=== PATIENT | female | born 2000 | race Caucasian/White ===

== ENCOUNTER 2021-04-08 14:43 | Inpatient (IN) ==
[2021-04-08 15:03] VITALS: TEMP 98.2
[2021-04-08 15:44] LABS: Hematocrit (blood only) 38.8 % (37-47); Hemoglobin 13.2 g/dL (12.0-16.0); Mean Corpuscular Hemoglobin 31.7 pg (25-34); Mean Platelet Volume 9.3 fL (7.4-10.4); Platelet Count 387 K/uL (130-400); RDW Coefficient of Variation 13.7 % (11.5-14.5); RDW Standard Deviation 46.5 fL (36.4-46.3); Red Blood Count 4.17 M/uL (4.2-5.4)
--- NOTE | 2021-04-08 15:46 | Emergency Department Note ---
Impression & Plan Cavitary pneumonia, Chest pain, Immunocompromised, Acute dyspnea ED Provider Note NAME: MELLY BELTRAN AGE: 20 SEX: F : 2000 ARRIVES VIA: Walk-In INFORMANT: Patient, ED PROVIDER(S): Ned Diaz MD Chief Complaint: Recent mono and pneumonia with right-sided chest pain and shortness of breath HPI: Patient does presents with the above complaints. The patient reportedly had mono approximately 2 weeks ago or so when the patient was recently treated for no pneumonia shortly thereafter. The patient does have a history of some chronic pneumonia is on Enbrel for history of JRA. The patient is not received her injections over the last several weeks as the patient has had a little bit of fever. Patient did have some right midlung pain. The patient had taken oobh-aet-lzfxpyt medications but denies significant improvement in symptoms. The patient has not shortness of breath with ambulation and some pain to the mid lung/chest. The patient denies any lower extremity swelling. The patient denies any recent prolonged car or plane travel. The patient did go back to [place] over the break but not has not traveled recently. Patient is a non- smoker and denies any leg swelling. The patient does use control. Patient has had productive cough but is unsure as to the cause of sputum. Pancho bunch was referred at the behest of her primary care physician. Patient states her sore throat and mono symptoms have improved. Patient denies any nausea vomiting. The patient has had slightly decreased appetite. ROS: See HPI for pertinent positives and negatives. A total of 10 systems were rev iewed and otherwise negative. Past medical history: See below Surgical history: See below Social history: See below Physical Exam: GENERAL: NAD, wearing a mask, non-toxic. EYE EXAM: Normal conjunctiva. PERRL, no anisocoria and EOM's grossly intact w/o pain. NECK: Supple, no nuchal rigidity, no adenopathy, non-tender. No signs of meningismus. FROM of the neck with good chin to chest and neck extension. No stridor. LUNGS: Decreased breath sounds right mid chest normal chest wall mechanics. HEART: Tachycardic and regular, no MRG. ABDOMEN: Abdomen soft, non-tender, normo-active bowel sounds, no masses, no rebound or guarding. BACK: No CVA TTP. SKIN: No rashes and no bruising. UPPER EXTREMITIES: Upper extremities are grossly normal. LOWER EXTREMITIES: Grossly normal, no edema. Negative Homans' sign bilaterally. NEURO EXAM: A&O x3, cranial nerves II-XII grossly intact, normal speech, moves all 4 extremities on command w/o issue. Differential diagnoses: Reactive airway disease, pneumonia, pneumothorax, COPD, CHF, infections, cardiac ischemia, pulmonary embolism, musculoskeletal, ga strointestinal, as well as other pathologies. Course: Patient was seen and evaluated the bedside. Full history physical exam was performed. EKG interpreted by me Sinus tachycardia, rate of 101, normal intervals, right axis deviation, no obvious ST elevations. Imaging Studies: See Below Cardiac monitoring: An order was placed for continuous cardiac monitoring. The monitor shows a rate of 105 with tachycardic and regular rhythm. MDM: Patient seen due to concern for shortness of breath and recent pneumonia with right mid chest/lung pain. Blood work was obtained along with a chest x-ray and CT angiography of the chest. Patient is a white count of 12 with a normal H&H. Platelet count is unremarkable. Kidney function unremarkable, mild hyponatremia. The patient did receive a liter and half of fluids. Chest x-ray initially read as negative but there may be a faint opacity in the right upper lobe. Patient CT angiography does not show any evidence of PE but does show airspace opacities in the right upper and lower lobe which likely represent pneumonia. Right upper lobe may be necrotic with cavitation and may represent pulmonary abscess. Given these findings I did speak with the on-call vice president global digital marketing Dr. Chavez. He recommended that the patient be placed in a negative pressure room and be tested for TB and HIV. He also recommended ID consult. Patient was ordered Zosyn with a pending MRSA swab. COVID test ordered and was negative. Patient was agreeable to HIV testing. The patient is well-appearing at the bedside and does not have an oxygen requirement. I did s peak the on-call hospitalist Dr. Gallo and the patient was admitted to the medicine service. I did speak with the patient's mother Hailey with the patient's permission and explained the plan of care. She is agreeable to this plan of care. Past Med/Surg History Medical History Acute pharyngitis due to infectious mononucleosis 02/2021 Juvenile rheumatoid arthritis Recurrent pneumonia Surgical History H/O wisdom tooth extraction Hx of tonsillectomy S/P foot surgery, right Family History Mother Breast cancer Ulcerative colitis Lupus Social History Smoking Status: Never smoker Hx Alcohol Use: No Hx Substance Use: No marital status: Single Current Living Situation Comment: dormitory at [employer] current occupational status: student current occupation: [employer] student, kinesiology major Feels Safe at Home: Yes Allergies Allergies Allergy/AdvReac Type Severity Reaction Status Date / Time pineapple Allergy Severe THROAT Verified 04/08/21 17:51 SWELLS SHUT Sulfa (Sulfonamide Allergy Intermediate FULL BODY Verified 04/08/21 17:51 Antibiotics) RASH Home Meds Home Medications Medication Instructions Recorded Confirmed etanercept 50 mg/mL (1 mL) 50 mg SUBCUT WK 03/25/21 04/08/21 subcutaneous pen injector (Enbrel SureClick) ethynodiol diacetate-ethinyl 1 tab PO DAILY 03/25/21 04/08/21 estradiol 1 mg-35 mcg tablet (Kelnor) naproxen 500 mg tablet 500 mg PO BID PRN 04/08/21 04/08/21 Results & Data (ED) Vital Signs Vital Signs - 24 hr 04/08/21 14:59 04/08/21 17:26 04/08/21 17:28 Temperature 36.8 C Temperature Source Temporal Artery Scan Pulse Rate 122 H Pulse Rate [Right Finger] 99 H Pulse Rhythm Regular Pulse Strength Normal Respiratory Rate 18 18 Respiratory Effort / Characteristics Non-Labored Spontaneous Non-Labored Spontaneous Respiratory Depth Normal Normal Respiratory Pattern Regular Regular Blood Pressure 143/82 H Blood Pressure [Right Arm] 122/81 Blood Pressure Mean 102 Blood Pressure Mean [Right Arm] 94 Pulse Oximetry 96 98 Oxygen Delivery Method Room Air Room Air Room Air Sepsis Recent Fever Within 48 Hours No Sepsis New/Unexplained Change in Mental Status No Sepsis Action Taken by Nursing No Action Required 04/08/21 19:00 Temperature Temperature Source Pulse Rate Pulse Rate [Right Finger] 87 Pulse Rhythm Pulse Strength Respiratory Rate 18 Respiratory Effort / Characteristics Respiratory Depth Respiratory Pattern Blood Pressure Blood Pressure [Right Arm] 148/75 H Blood Pressure Mean Blood Pressure Mean [Right Arm] 99 Pulse Oximetry 97 Oxygen Delivery Method Sepsis Recent Fever Within 48 Hours Sepsis New/Unexplained Change in Mental Status Sepsis Action Taken by Correction Medications Current Medication List: was personally reviewed by me Laboratory Data Attestation: I reviewed the patient's lab results. Result diagrams: 04/08/21 15:32 04/08/21 15:32 Lab Results 04/08/21 04/08/21 04/08/21 Range/Units 15:32 15:32 15:32 WBC 12.50 H (4.8-10.8) K/uL RBC 4.17 L (4.2-5.4) M/uL Hgb 13.2 (12.0-16.0) g/dL Hct 38.8 (37-47) % MCV 93.0 (80-100) fL MCH 31.7 (25-34) pg MCHC 34.0 (32-36) g/dL RDW Std Deviation 46.5 H (36.4-46.3) fL RDW Coeff of Sol 13.7 (11.5-14.5) % Plt Count 387 (130-400) K/uL MPV 9.3 (7.4-10.4) fL Immature Gran % (Auto) 0.5 % Neut % (Auto) 61.1 % Lymph % (Auto) 28.6 % [place] % (Auto) 9.1 % Eos % (Auto) 0.4 % Baso % (Auto) 0.3 % Neut # (Auto) 7.64 H (1.4-6.5) K/uL Lymph # (Auto) 3.57 H (1.2-3.4) K/uL [place] # (Auto) 1.14 H (0.11-0.59) K/uL Eos # (Auto) 0.05 (0-0.5) K/uL Baso # (Auto) 0.04 (0-0.2) K/uL Immature Gran # (Auto) 0.06 H (0.00-0.02) K/uL PT 10.6 (9.0-12.0) Seconds INR 1.0 (0.9-1.1) APTT 26.8 (21.0-31.0) Seconds PTT Ratio 1.0 Sodium 135 L (136-145) mmol/L Potassium 4.0 (3.5-5.1) mmol/L Chloride 102 (98-107) mmol/L Carbon Dioxide 23 (21-32) mmol/L Anion Gap 10 (3-11) BUN 17 (6-23) mg/dl Creatinine 0.78 (0.6-1.2) mg/dl Est Cr Clr Drug Dosing 121.9 ml/min Est GFR ( Amer) 127.7 ml/min Est GFR (Non-Af Amer) 110.2 ml/min BUN/Creatinine Ratio 21.8 H (10-20) Glucose 98 (70-99(Fasting)) mg/dl Calcium 9.6 (8.5-10.1) mg/dl Magnesium 2.0 (1.7-2.4) mg/dl Total Bilirubin 0.7 (0.2-1.0) mg/dl AST 21 (13-39) U/L ALT 37 (7-52) U/L Alkaline Phosphatase 127 H (34-104) U/L Troponin I < 0.03 (0-0.04) ng/ml Total Protein 8.2 (6.0-8.3) gm/dl Albumin 4.0 (3.4-5.0) gm/dl Globulin 4.2 H (2.5-4.0) gm/dl Albumin/Globulin Ratio 1.0 (0.9-2) SARS-CoV-2, RNA, NAAT (NEGATIVE) 04/08/21 Range/Units 18:10 WBC (4.8-10.8) K/uL RBC (4.2-5.4) M/uL Hgb (12.0-16.0) g/dL Hct (37-47) % MCV (80-100) fL MCH (25-34) pg MCHC (32-36) g/dL RDW Std Deviation (36.4-46.3) fL RDW Coeff of Sol (11.5-14.5) % Plt Count (130-400) K/uL MPV (7.4-10.4) fL Immature Gran % (Auto) % Neut % (Auto) % Lymph % (Auto) % [place] % (Auto) % Eos % (Auto) % Baso % (Auto) % Neut # (Auto) (1.4-6.5) K/uL Lymph # (Auto) (1.2-3.4) K/uL [place] # (Auto) (0.11-0.59) K/uL Eos # (Auto) (0-0.5) K/uL Baso # (Auto) (0-0.2) K/uL Immature Gran # (Auto) (0.00-0.02) K/uL PT (9.0-12.0) Seconds INR (0.9-1.1) APTT (21.0-31.0) Seconds PTT Ratio Sodium (136-145) mmol/L Potassium (3.5-5.1) mmol/L Chloride (98-107) mmol/L Carbon Dioxide (21-32) mmol/L Anion Gap (3-11) BUN (6-23) mg/dl Creatinine (0.6-1.2) mg/dl Est Cr Clr Drug Dosing ml/min Est GFR ( Amer) ml/min Est GFR (Non-Af Amer) ml/min BUN/Creatinine Ratio (10-20) Glucose (70-99(Fasting)) mg/dl Calcium (8.5-10.1) mg/dl Magnesium (1.7-2.4) mg/dl Total Bilirubin (0.2-1.0) mg/dl AST (13-39) U/L ALT (7-52) U/L Alkaline Phosphatase (34-104) U/L Troponin I (0-0.04) ng/ml Total Protein (6.0-8.3) gm/dl Albumin (3.4-5.0) gm/dl Globulin (2.5-4.0) gm/dl Albumin/Globulin Ratio (0.9-2) SARS-CoV-2, RNA, NAAT NEGATIVE (NEGATIVE) Administered Medications Discontinued Medications Sodium Chloride (Nss 1000ml) 1,000 mls @ 999 mls/hr IV .Q1H1M ONE Stop: 04/08/21 17:01 Last Infusion: 04/08/21 19:15 Dose: 0 mls/hr Documented by: [id number] Admin: 04/08/21 17:25 Dose: 999 mls/hr Documented by: [id number] Sodium Chloride (Nss) 500 mls @ 999 mls/hr IV .Q31M ONE Stop: 04/08/21 16:31 Last Infusion: 04/08/21 18:05 Dose: 0 mls/hr Documented by: [id number] Admin: 04/08/21 17:26 Dose: 999 mls/hr Documented by: [id number] Cefepime HCl (Maxipime) 2,000 mg in 20 mls @ 5 mls/min IV NOW STA; Protocol Stop: 04/08/21 17:36 Last Admin: 04/08/21 18:05 Dose: Not Given Documented by: [id number] Vancomycin HCl 2,000 mg/ (Sodium Chloride) 540 mls @ 200 mls/hr IV NOW ONE Stop: 04/08/21 20:14 Last Admin: 04/08/21 18:05 Dose: Not Given Documented by: [id number] Piperacillin Sod/Tazobactam Sod (Zosyn) 4.5 gm in 120 mls @ 240 mls/hr IV NOW ONE Stop: 04/08/21 18:15 Last Infusion: 04/08/21 19:19 Dose: 0 mls/hr Documented by: [id number] Admin: 04/08/21 18:48 Dose: 240 mls/hr Documented by: [id number] Ioversol (Optiray 320 125ml) 120 ml IV ONCE ONE Stop: 04/08/21 16:31 Last Admin: 04/08/21 16:32 Dose: 120 ml Documented by: [id number] Metronidazole (Metronidazole 500 Mg Tab) 500 mg PO NOW STA Stop: 04/08/21 17:34 Last Admin: 04/08/21 18:05 Dose: Not Given Documented by: [id number] Imaging Data Radiologist's Impression: Chest X-Ray 04/08/21 15:03 XR chest 1V portable CLINICAL HISTORY: SOB TECHNIQUE: Single frontal radiograph of the chest was obtained. Comparison: None available at the time of this dictation. FINDINGS: No lines and tubes are seen. The cardiomediastinal silhouette is normal. The lungs are clear. No evidence of pleural effusion or pneumothorax. IMPRESSION: No acute chest disease. ACT 112: Negative or not required by law. Electronically signed by: Antonio Barth M.D. 04/08/2021 4:05 PM Chest CTA 04/08/21 15:47 CT angio chest PE protocol CLINICAL HISTORY: PE TECHNIQUE: Multidetector row helical CT of the chest was performed. Coronal and sagittal reformations were obtained. Coronal and sagittal MIPS were obtained from the axial data set and were submitted for review. Automated dose lowering techniques and/or adjustment according to patient size were utilized for this exam. Comparison: Comparison is made to chest one view 04/08/2021 FINDINGS: Lungs and pleura: Focal opacities are seen in the right upper lobe and right lower lobe. The upper lobe focus contains some cavitation. Heart and pericardium: Heart size is normal. No pericardial effusion. Vessels: No evidence of pulmonary embolism. Mediastinum and jia: Unremarkable. Chest wall and lower neck: Unremarkable. Abdomen: Unremarkable. Bones: Unremarkable. IMPRESSION: 1. No evidence of pulmonary embolism. 2. Airspace opacities in the right upper lobe and right lower lobe favored to represent pneumonia. The right upper lobe contains necrosis and cavitation and may represent pulmonary abscess. ACT 112: Negative or not required by law. Electronically signed by: Antonio Barth M.D. 04/08/2021 4:49 PM Discharge Plan Visit Data Chief Complaint: Shortness of Breath/Dyspnea Stated Complaint: MONO,PNEUMONIA,SENT FOR CT BY PCP ED Provider: Ned Diaz Discharge Problem: Cavitary pneumonia, Chest pain, Immunocompromised, Acute dyspnea Patient Disposition: Admitted As Inpatient Forms Stand Alone Forms: [employer] Prescriptions Prescriptions: No Action naproxen 500 mg tablet 500 mg PO BID PRN (Reason: Pain) RF: 0 ethynodiol diac-eth estradiol [Robertonor ()] 1-35 mg-mcg tablet 1 tab PO DAILY RF: 0 Enbrel SureClick 50 mg/mL (1 mL) pen injector 50 mg SUBCUT WK RF: 0 Referrals Referrals: [place] [Primary Care Provider] -
[2021-04-08 15:55] LABS: Partial Thromboplastin Time 26.8 Seconds (21.0-31.0); Prothrombin Time 10.6 Seconds (9.0-12.0)
[2021-04-08] MEDS ORDERED: SODIUM CHLORIDE 0.9% 500 ML IV ONE (16:01)
[2021-04-08] MEDS ORDERED: SODIUM CHLORIDE 0.9% 1000ML 1,000 ML IV ONE (16:01)
[2021-04-08 16:04] LABS: Anion Gap 10 (3-11); BUN Creatinine Ratio 21.8 (10-20); Blood Urea Nitrogen 17 mg/dl (6-23); Calcium 9.6 mg/dl (8.5-10.1); Carbon Dioxide 23 mmol/L (21-32); Chloride 102 mmol/L (98-107); Creatinine Clr Calc Pharmacy 121.9 ml/min; Est GFR (African American) 127.7 ml/min; Est GFR (Non-African American) 110.2 ml/min; Glucose 98 mg/dl (70-99(Fasting)); Sodium 135 mmol/L (136-145)
[2021-04-08 16:05] LABS: Alanine Aminotransferase 37 U/L (7-52); Alkaline Phosphatase 127 U/L (34-104); Aspartate Aminotransferase 21 U/L (13-39); Bilirubin,Total 0.7 mg/dl (0.2-1.0); Globulin 4.2 gm/dl (2.5-4.0); Total Protein 8.2 gm/dl (6.0-8.3)
--- NOTE | 2021-04-08 16:06 | XRay Report ---
XR chest 1V portable CLINICAL HISTORY: SOB TECHNIQUE: Single frontal radiograph of the chest was obtained. Comparison: None available at the time of this dictation. FINDINGS: No lines and tubes are seen. The cardiomediastinal silhouette is normal. The lungs are clear. No evid ence of pleural effusion or pneumothorax. IMPRESSION: No acute chest disease. ACT 112: Negative or not required by law. Electronically signed by: Antonio Barth M.D. 04/08/2021 4:05 PM
[2021-04-08 16:07] LABS: Troponin I < 0.03 ng/ml (0-0.04)
[2021-04-08 16:12] LABS: Basophils # (auto) 0.04 K/uL (0-0.2); Basophils % (auto) 0.3 %; Eosinophils # (auto) 0.05 K/uL (0-0.5); Eosinophils % (auto) 0.4 %; Immature Granulocytes # (auto) 0.06 K/uL (0.00-0.02); Immature Granulocytes % (auto) 0.5 %; Lymphocytes # (auto) 3.57 K/uL (1.2-3.4); Lymphocytes % (auto) 28.6 %; Monocytes # (auto) 1.14 K/uL (0.11-0.59); Monocytes % (auto) 9.1 %; Neutrophils # (auto) 7.64 K/uL (1.4-6.5); Neutrophils % (auto) 61.1 %
[2021-04-08] MEDS ORDERED: OPTIRAY 320 125ml IV ONE (16:30)
--- NOTE | 2021-04-08 16:51 | CT Scan Report ---
CT angio chest PE protocol CLINICAL HISTORY: PE TECHNIQUE: Multidetector row helical CT of the chest was performed. Coronal and sagittal reformations were obtained. Coronal and sagittal MIPS were obtained from the axial data set and were submitted fo r review. Automated dose lowering techniques and/or adjustment according to patient size were utiliz ed for this exam. Comparison: Comparison is made to chest one view 04/08/2021 FINDINGS: Lungs and pleura: Focal opacities are seen in the right upper lobe and right lower lobe. The upper lo be focus contains some cavitation. Heart and pericardium: Heart size is normal. No pericardial effusion. Vessels: No evidence of pulmonary embolism. Mediastinum and jia: Unremarkable. Chest wall and lower neck: Unremarkable. Abdomen: Unremarkable. Bones: Unremarkable. IMPRESSION: 1. No evidence of pulmonary embolism. 2. Airspace opacities in the right upper lobe and right lower lobe favored to represent pneumonia. T he right upper lobe contains necrosis and cavitation and may represent pulmonary abscess. ACT 112: Negative or not required by law. Electronically signed by: Antonio Barth M.D. 04/08/2021 4:49 PM
[2021-04-08] MEDS ORDERED: CEFEPIME 2,000 MG/20 ML VIAL IV STA (17:33)
[2021-04-08] MEDS ORDERED: VANCOMYCIN CONSULT ACTIVE PRN (17:33)
[2021-04-08] MEDS ORDERED: VANCOMYCIN HCL 2,000 MG in SODIUM CHLORIDE 0.9% 500 ML IV ONE (17:33)
[2021-04-08] MEDS ORDERED: metroNIDAZOLE 500 MG TAB PO STA (17:33)
[2021-04-08] MEDS ORDERED: PIPERACILL/TAZOBAC CONSULT ACTIVE PRN ×2 (17:46→22:27)
--- NOTE | 2021-04-08 18:05 | History & Physical Report ---
Date of Service April 08, 2021 Assessment & Plan (1) Cavitary pneumonia: Plan: RUL pneumonia with mild cavitation. Small amount of RLL pneumonia as well. s/p course of augmentin + zithromax as outpatient recently. Fevers/chills resolved. Labs reassuring at admission today. No hypoxia. ED attending spoke with pulmonary. Plan/recommendations at this time - * zosyn q8h * place in airborne isolation - r/o TB (given the cavitation and risk of such due to Enbrel use for RA) * AFB smear/culture in AM * Quantiferon gold sent * HIV test sent - patient gave verbal consent for such * MRSA PRODUCTION EXPERT swab - if negative, defer on MRSA coverage * blood cultures x 2 sets * formal pulmonary consultation requested (2) Recurrent pneumonia: Plan: Multiple episodes of right-sided pneumonia per the patient over several years. Immune deficiency? Anatomic abnormality of the right lung leading to recurrent pneumonia? Patient reports ?"mild" cystic fibrosis. Will check IgG, IgM, IgA in am. Pulmonary consultation. (3) Mononucleosis: Plan: Diagnosed with such earlier this month. Monospot +. Previously had mono-induced transaminitis - now resolved. Greenlee symptoms resolved including recent pharyngitis. (4) Rheumatoid arthritis: Plan: previously on Humira, then switched to Enbrel 01/2021. no active flare at this time. (5) DVT prophylaxis: Plan: lovenox 40mg daily History of Present Illness Chief Complaint: right upper back pain Primary Care Provider: [facility] 20yo female, [employer] student, with history of juvenile rheumatoid arthritis and recurrent pneumonia, presents with complaints of persistent right upper back pain for several weeks. Pleuritic in nature. In addition to the above, she has had intermittent fevers along with URI symptoms dating back to 2020. Patient states that 03/09 into 03/10 she developed URI symptoms. She was seen by her supervisor heat treating in [place], had negative COVID testing, and was told she had a viral URI. From until New 's she felt unwell with intermittent fevers to 101 degrees, mild cough, appetite loss, and back pain. She felt well enough to return for the spring at [employer] in [place] ~03/24/21. Upon return to [place], however, she developed severe sore throat. She presented to our ER on 03/25/21 and was diagnosed with mono. She was given a dose of steroid for such. AST/ALT were elevated at that time. COVID testing was negative. Her family came back to [place] the following day and brought her back to [place]. Upon return to [place] she visited a local ER there and was diagnosed with right-sided pneumonia. She was placed on a course of augmentin + zithromax. She continued to feel poorly despite the antibiotics with ongoing intermittent fevers and intermittent rigors. Her last episode of rigors was 04/03, and her last documented fever was 04/04. She did finally feel better on a grand scale late this past week and her appetite improved. She has had minimal cough. She has had dyspnea on exertion. Despite feeling better she continued with right upper back pain over the last week. [facility] CTA chest was obtained, and although negative for PE, showed RUL pneumonia with some cavitation, and a small amount of RLL pneumonia. She denies any TB risk factors - does not work in a healthcare or correction setting, no travel, no work or spending time in prisons, etc. No family history of TB. Up until 01/2021 she was on Humira for her RA. She was changed to Enbrel 01/2021 but hasn't been taking it due to her prolonged illness since February. Patient reports having had 4-5 episodes of right-sided pneumonia over the years. Last episode was 3-4 years ago. She has never been hospitalized for pneumonia. She mentions that she was possibly diagnosed with a "mild form of cystic fibrosis" years ago at [facility] in [place] but doesn't follow regularly with a larder cook. Allergies Allergy/AdvReac Type Severity Reaction Status Date / Time pineapple Allergy Severe THROAT Verified 04/08/21 17:51 SWELLS SHUT Sulfa (Sulfonamide Allergy Intermediate FULL BODY Verified 04/08/21 17:51 Antibiotics) RASH Home Medications Medication Instructions Recorded Confirmed Type etanercept 50 mg/mL (1 mL) 50 mg SUBCUT WK 03/25/21 04/08/21 History subcutaneous pen injector (Enbrel Kelyick) ethynodiol diacetate-ethinyl 1 tab PO DAILY 03/25/21 04/08/21 History estradiol 1 mg-35 mcg tablet (Kelnor) naproxen 500 mg tablet 500 mg PO BID PRN 04/08/21 04/08/21 History Past Med/Surg History Medical History (Updated 04/08/21 @ 21:47 by Chester Gallo) Acute pharyngitis due to infectious mononucleosis 02/2021 Juvenile rheumatoid arthritis Recurrent pneumonia Surgical History H/O wisdom tooth extraction Hx of tonsillectomy S/P foot surgery, right Family History Mother Breast cancer Ulcerative colitis Lupus Social History Smoking Status: Never smoker Hx Alcohol Use: No Hx Substance Use: No marital status: Single Current Living Situation Comment: dormitory at [employer] current occupational status: student current occupation: [employer] student, kinesiology major Feels Safe at Home: Yes Review of Systems Review of Systems: gen - fevers, chills, occasional sweats; no weight loss HENT - recent R ear pain - now resolved; recent sore throat - now resolved eyes - no visual change heart - no chest pain; atypical pleuritic pain (right upper back) lungs - cough; no sputum; mild VENTURA last several weeks GI - no nausea, emesis, abd pain or diarrhea - LMP 1 week ago; no dysuria musculo - no joint pain (rheumatoid) skin - rash on arms x 1 week neuro - no headaches, no paresthesias or weakness endo - no diabetes lymph - she has not noted any lymph nodes in the neck, groin, etc. Physical Exam Physical Exam: gen - NAD, nontoxic eyes - PERRL HENT - mild TM retraction b/l; nose clear; throat - tonsils absent, no lesions neck - no JVD, mild cervical lymphadenopathy b/l heart - RRR, s1 s2, no murmur lungs - rales right upper back and right anterior chest; otherwise CTA b/l; no wheeze; no increased work of breathing abd - soft, NT, ND, BS+, spleen tip palpable ext - no edema, pulses 2+ b/l skin - erythematous papules b/l arms, no rash other locations neuro - strength 5/5 x 4 exts; DTRs 2+ b/l psych - a/o x 3 Results & Data Results & Data ([facility]) Vital Signs (Past 12 Hours) Vital Signs Temp Pulse Pulse Resp BP BP Pulse Ox 04/08/21 17:26 99 H 18 122/81 98 04/08/21 14:59 36.8 C 122 H 18 143/82 H 96 Laboratory Results Laboratory Results - last 24 hr 04/08/21 04/08/21 04/08/21 15:32 15:32 15:32 WBC 12.50 H RBC 4.17 L Hgb 13.2 Hct 38.8 MCV 93.0 MCH 31.7 MCHC 34.0 RDW Std Deviation 46.5 H RDW Coeff of Sol 13.7 Plt Count 387 MPV 9.3 Immature Gran % (Auto) 0.5 Neut % (Auto) 61.1 Lymph % (Auto) 28.6 Greenlee % (Auto) 9.1 Eos % (Auto) 0.4 Baso % (Auto) 0.3 Neut # (Auto) 7.64 H Lymph # (Auto) 3.57 H Greenlee # (Auto) 1.14 H Eos # (Auto) 0.05 Baso # (Auto) 0.04 Immature Gran # (Auto) 0.06 H PT 10.6 INR 1.0 APTT 26.8 PTT Ratio 1.0 Sodium 135 L Potassium 4.0 Chloride 102 Carbon Dioxide 23 Anion Gap 10 BUN 17 Creatinine 0.78 Est Cr Clr Drug Dosing 121.9 Est GFR ( Amer) 127.7 Est GFR (Non-Af Amer) 110.2 BUN/Creatinine Ratio 21.8 H Glucose 98 Calcium 9.6 Magnesium 2.0 Total Bilirubin 0.7 AST 21 ALT 37 Alkaline Phosphatase 127 H Troponin I < 0.03 Total Protein 8.2 Albumin 4.0 Globulin 4.2 H Albumin/Globulin Ratio 1.0 Nasal Screen MRSA (PCR) HIV 1&2 Ab/P24 Ag 4thGn SARS-CoV-2, RNA, NAAT TB Test (QFT) Gold Plus TB Test (QFT) Nil TB Test Mitogen - Nil TB Test Ag - Nil 1 TB Test Ag - Nil 2 04/08/21 04/08/21 04/08/21 18:10 18:10 18:33 WBC RBC Hgb Hct MCV MCH MCHC RDW Std Deviation RDW Coeff of Sol Plt Count MPV Immature Gran % (Auto) Neut % (Auto) Lymph % (Auto) Greenlee % (Auto) Eos % (Auto) Baso % (Auto) Neut # (Auto) Lymph # (Auto) Greenlee # (Auto) Eos # (Auto) Baso # (Auto) Immature Gran # (Auto) PT INR APTT PTT Ratio Sodium Potassium Chloride Carbon Dioxide Anion Gap BUN Creatinine Est Cr Clr Drug Dosing Est GFR ( Amer) Est GFR (Non-Af Amer) BUN/Creatinine Ratio Glucose Calcium Magnesium Total Bilirubin AST ALT Alkaline Phosphatase Troponin I Total Protein Albumin Globulin Albumin/Globulin Ratio Nasal Screen MRSA (PCR) Negative HIV 1&2 Ab/P24 Ag 4thGn Pending SARS-CoV-2, RNA, NAAT NEGATIVE TB Test (QFT) Gold Plus TB Test (QFT) Nil TB Test Mitogen - Nil TB Test Ag - Nil 1 TB Test Ag - Nil 2 04/08/21 18:33 WBC RBC Hgb Hct MCV MCH MCHC RDW Std Deviation RDW Coeff of Sol Plt Count MPV Immature Gran % (Auto) Neut % (Auto) Lymph % (Auto) Greenlee % (Auto) Eos % (Auto) Baso % (Auto) Neut # (Auto) Lymph # (Auto) Greenlee # (Auto) Eos # (Auto) Baso # (Auto) Immature Gran # (Auto) PT INR APTT PTT Ratio Sodium Potassium Chloride Carbon Dioxide Anion Gap BUN Creatinine Est Cr Clr Drug Dosing Est GFR ( Amer) Est GFR (Non-Af Amer) BUN/Creatinine Ratio Glucose Calcium Magnesium Total Bilirubin AST ALT Alkaline Phosphatase Troponin I Total Protein Albumin Globulin Albumin/Globulin Ratio Nasal Screen MRSA (PCR) HIV 1&2 Ab/P24 Ag 4thGn SARS-CoV-2, RNA, NAAT TB Test (QFT) Gold Plus Pending TB Test (QFT) Nil Pending TB Test Mitogen - Nil Pending TB Test Ag - Nil 1 Pending TB Test Ag - Nil 2 Pending Diagnostic Findings Chest X-Ray 04/08/21 15:03 XR chest 1V portable CLINICAL HISTORY: SOB TECHNIQUE: Single frontal radiograph of the chest was obtained. Comparison: None available at the time of this dictation. FINDINGS: No lines and tubes are seen. The cardiomediastinal silhouette is normal. The lungs are clear. No evidence of pleural effusion or pneumothorax. IMPRESSION: No acute chest disease. ACT 112: Negative or not required by law. Electronically signed by: Antonio Barth M.D. 04/08/2021 4:05 PM Chest CTA 04/08/21 15:47 CT angio chest PE protocol CLINICAL HISTORY: PE TECHNIQUE: Multidetector row helical CT of the chest was performed. Coronal and sagittal reformations were obtained. Coronal and sagittal MIPS were obtained from the axial data set and were submitted for review. Automated dose lowering techniques and/or adjustment according to patient size were utilized for this exam. Comparison: Comparison is made to chest one view 04/08/2021 FINDINGS: Lungs and pleura: Focal opacities are seen in the right upper lobe and right lower lobe. The upper lobe focus contains some cavitation. Heart and pericardium: Heart size is normal. No pericardial effusion. Vessels: No evidence of pulmonary embolism. Mediastinum and jia: Unremarkable. Chest wall and lower neck: Unremarkable. Abdomen: Unremarkable. Bones: Unremarkable. IMPRESSION: 1. No evidence of pulmonary embolism. 2. Airspace opacities in the right upper lobe and right lower lobe favored to represent pneumonia. The right upper lobe contains necrosis and cavitation and may represent pulmonary abscess. ACT 112: Negative or not required by law. Electronically signed by: Antonio Barth M.D. 04/08/2021 4:49 PM PG Care Time/CCT Total # of Minutes Spent Total Time Spent with Patient: Total time spent is greater than 50% in coordination of care (as documented) at patient's floor/unit and/or counseling patient: Coding Level of Care Code 27261 Initial Inpt Care Lvl 3 Diagnoses Cavitary pneumonia J18.9; J98.4 Recurrent pneumonia J18.9 Mononucleosis B27.90 Rheumatoid arthritis M06.9 DVT prophylaxis Z29.9
[2021-04-08] MEDS: PIPERACILLIN/TAZOBACTAM 4.5 GM/120 ML BAG IV ONE ×2 (18:06→18:48)
--- NOTE | 2021-04-08 20:29 | Electrocardiogram Report ---
Test Reason : Blood Pressure : / mmHG Vent. Rate : 101 BPM Atrial Rate : 101 BPM P-R Int : 130 ms QRS Dur : 092 ms QT Int : 346 ms P-R-T Axes : 043 083 036 degrees QTc Int : 448 ms Sinus tachycardia Otherwise normal ECG No previous ECGs available Confirmed by Eric Yepez ([id number]) on 04/08/2021 8:29:28 PM Referred By: Confirmed By:Lj Yepez
[2021-04-08] MEDS ORDERED: SODIUM CHLORIDE 0.9% 1000ML 1,000 ML IV SCH (22:27)
[2021-04-08] MEDS ORDERED: ACETAMINOPHEN 325 MG TAB PO PRN (22:27)
[2021-04-08] MEDS ORDERED: ONDANSETRON INJ 2 MG/ML 2 ML VIAL IV PRN (22:27)
[2021-04-09] MEDS: PIPERACILLIN/TAZOBACTAM 3.375 GM in DEXTROSE 5% 100 ML IV SCH ×3 (00:24→17:24)
[2021-04-09 01:18] LABS: Pregnancy Test, Urine Negative (Negative)
[2021-04-09 05:55] LABS: BUN Creatinine Ratio 19.5 (10-20); Calcium 8.3 mg/dl (8.5-10.1); Creatinine Clr Calc Pharmacy 125.1 ml/min; Est GFR (African American) 129.7 ml/min; Est GFR (Non-African American) 111.9 ml/min; Immunoglobulin A 319.4 mg/dl (70-400); Immunoglobulin G 1015.6 mg/dl (635-1741); Immunoglobulin M 160.8 mg/dl (45-281); Potassium 4.1 mmol/L (3.5-5.1)
[2021-04-09 06:48] LABS: Hematocrit (blood only) 31.6 % (37-47); Hemoglobin 10.5 g/dL (12.0-16.0); Mean Corpuscular Hemoglobin 31.1 pg (25-34); Mean Corpuscular Hgb Conc 33.2 g/dL (32-36); Mean Corpuscular Volume 93.5 fL (80-100); Mean Platelet Volume 9.4 fL (7.4-10.4); Platelet Count 316 K/uL (130-400); RDW Coefficient of Variation 13.7 % (11.5-14.5); RDW Standard Deviation 46.9 fL (36.4-46.3); Red Blood Count 3.38 M/uL (4.2-5.4); White Blood Count 9.42 K/uL (4.8-10.8)
[2021-04-09 06:49] LABS: Basophils # (auto) 0.03 K/uL (0-0.2); Basophils % (auto) 0.3 %; Eosinophils # (auto) 0.09 K/uL (0-0.5); Immature Granulocytes # (auto) 0.06 K/uL (0.00-0.02); Immature Granulocytes % (auto) 0.6 %; Lymphocytes # (auto) 2.34 K/uL (1.2-3.4); Lymphocytes % (auto) 24.8 %; Monocytes % (auto) 10.6 %; Neutrophils % (auto) 62.7 %; Polychromasia 1+
--- NOTE | 2021-04-09 08:25 | Pulmonary Consultation ---
Date of Consultation April 09, 2021 Assessment & Plan (1) Cavitary pneumonia: (2) Recurrent pneumonia: (3) Mononucleosis: Johanna Frey is a 20-year-old female with past medical history of juvenile rheumatoid arthritis and recent pneumonia diagnosis who is now admitted due to recurrent pneumonia symptoms and findings of cavitary lesion on CT. Cavitary pneumonia - No clear history/risk factors concerning for TB at this time but her immunosuppressive treament for JRA does put her at risk - Recommend continuing Zosyn at this point -- await ID consult for treatment duration/regimen - Recommend follow-up CXR in [address] in 4-6 weeks - Follow sputum/AFB cultures, Quantiferon Gold, HIV testing - Continue airborne isolation until TB ruled out Thank you for allowing us to participate in this patient's care. Please refer to Dr. Chavez's attestation for further information. Supervising Physician Co-Signing Physician Notes Patient seen and examined resident physician. Agree with assessment and plan aside for any additions/exceptions noted: She has a notable history for being on Enbrel and Humira. She notes that she gets yearly TB testing and has been negative. She denies any obvious risk factors. ID consult is pending. Immunoglobulins were unremarkable. QuantiFERON gold testing pending. HIV screen was negative. Sputum Gram stain was unremarkable. Sputum AFB pending. Patient does not appear toxic or septic at this time. She likely has a bacterial pneumonia which has become a necrosing/cavitating process. Recommend antibiotics for 4-6 weeks and repeat i maging such as a chest x-ray in 2 weeks and then a follow-up CT chest in 4 to 6 weeks. If no improvement in 2 weeks, can perform bronchoscopy to obtain cultures and tissue samples. Would probably hold Enbrel during this period of time, but will defer to infectious disease in terms of guidance. Can consider autoimmune serological testing including ANCA and CINTHIA screens if no improvement in the future. Other possibilities include congenital pulmonary airway malformation or congenital pulmonary atresia. This does not appear to be pulmonary sequestration as there is no clear blood vessel from the systemic circulation Constitutional: Patient appears to be of their stated age. Patient is in no apparent distress. Patient is well-developed. Eyes: Pupils are equal round and reactive to light. Conjunctivae are normal. Anicteric sclera. Ears nose, mouth and throat: No obvious deformities. Neck: Trachea is midline. Visual inspection is normal. Respiratory: Clear to auscultation bilaterally. No use of accessory muscles. No significant clubbing noted. Cardiovascular: Regular rate and rhythm. No murmurs. No edema. Gastrointestinal: Normal bowel sounds, soft, nontender and nondistended. No hepatosplenomegaly noted. Musculoskeletal: No cyanosis. Patient is able to move all extremities. Skin: No rashes, warm dry and intact. Neurologic: No obvious focal neurological deficits seen. Psychiatric: Alert and oriented x3 with a euthymic affect. Thank you for the consult. We will continue to follow with you. History of Present Illness Attending Physician: Chester Gallo History of Present Illness Johanna Frey is a 20-year-old female with past medical history of juvenile rheumatoid arthritis on Enbrel and recent pneumonia diagnosis who presented due to upper back pain in the setting of recurrent upper respiratory symptoms. She first began with symptoms on March 09 and at that point was tested for Covid, which was negative. She eventually went home for the holidays and felt well enough to return to [facility] for spring on 03/24. However, at this time she developed a sore throat and presented to the [facility] emergency department. She was diagnosed with mononucleosis and received a one-time dose of IV dexamethasone prior to discharge home. Shortly thereafter she returned home to [place] with family and eventually visited in ER there and was diagnosed with right-sided pneumonia. She was started on a course of Augmentin and Zithromax. Despite this, she continued to feel poorly and had intermittent fevers as well as continued dyspnea on exertion. She has had very minimal coughing and minimal sputum production. Upon admission to our hospital, CTA chest was obtained, which was negative for PE but did show right upper lobe pneumonia with mild cavitation and right lower lobe pneumonia as well. She does not have a known family history of TB infection, does not work in healthcare skilled nursing setting, Has not traveled to any area with high rates of tuberculosis, does not work/volunteer/spend time in prisons. Allergies Allergy/AdvReac Type Severity Reaction Status Date / Time pineapple Allergy Severe THROAT Verified 04/08/21 17:51 SWELLS SHUT Sulfa (Sulfonamide Allergy Intermediate FULL BODY Verified 04/08/21 17:51 Antibiotics) RASH Home Medications Medication Instructions Recorded Confirmed Type etanercept 50 mg/mL (1 mL) 50 mg SUBCUT WK 03/25/21 04/08/21 History subcutaneous pen injector (Enbrel Kelyick) ethynodiol diacetate-ethinyl 1 tab PO DAILY 03/25/21 04/08/21 History estradiol 1 mg-35 mcg tablet (Kelnor) naproxen 500 mg tablet 500 mg PO BID PRN 04/08/21 04/08/21 History Patient History Medical History (Updated 04/09/21 @ 00:06 by Karla Bernardo) Acute pharyngitis due to infectious mononucleosis 02/2021 Juvenile rheumatoid arthritis Recurrent pneumonia Surgical History H/O wisdom tooth extraction Hx of tonsillectomy S/P foot surgery, right Family History Mother Breast cancer Ulcerative colitis Lupus Social History Smoking Status: Never smoker Hx Alcohol Use: No Hx Substance Use: No Communication Ability: Effective Beliefs That Will Affect Care: None marital status: Single Current Living Situation: Other Current Living Situation Comment: roomate at college dorm current occupational status: student current occupation: [employer] student, kinesiology major Feels Safe at Home: Yes Assistive Devices: None Review of Systems Review of Systems: Reports back pain and mild SOB on exertion. Denies f/c, n/v, cough, CP, palp, abd pain, diarrhea, constipation, urinary symptoms, MÉNDEZ, dizziness, unexplained weight loss, weakness, fatigue. Physical Exam Physical Exam: GENERAL: A&Ox3. NAD. HEENT: PERRL, EOMI. Moist mucous membranes. NECK: No lymphadenopathy. CHEST/LUNGS: CTAB A/P. No crackles, wheezes, rales, rhonchi. HEART: RRR. No m/g/r. ABDOMEN: NT/ND, soft. BS+ x4 EXTREMITIES: No cyanosis, no clubbing, no edema SKIN: Warm and dry. No rashes or lesions. PSYCHIATRIC: Euthymic affect, no SI, no pressured speech, no hallucinations. NEUROLOGIC: No FND. CN II-XII grossly intact. Results & Data Results & Data ([facility]) Vital Signs (Past 12 Hours) Vital Signs Pulse Resp BP Pulse Ox 04/09/21 07:00 83 23 96 04/09/21 00:54 16 04/08/21 22:27 84 16 121/63 98 Resident Activity Tracking Resident Involvement: Resident Care Provided Care Provided: Adult Hospital Medicine
[2021-04-09] MEDS: ENOXAPARIN INJ 40 MG/0.4 ML SYR SQ SCH (09:17)
[2021-04-09] MEDS: ADVANCED PROBIOTIC 1250 MG CAPSULE PO SCH (09:17)
[2021-04-09] MEDS ORDERED: KELNOR PO SCH ×2 (12:00→22:00)
--- NOTE | 2021-04-09 14:00 | Hospitalist Progress Note ---
Date of Service April 09, 2021 Assessment & Plan (1) Cavitary pneumonia: Plan: RUL pneumonia with mild cavitation. Likely bacterial. Small risk that it is TB. Small amount of RLL pneumonia as well. s/p course of augmentin + zithromax as outpatient recently. Fevers/chills resolved. Labs reassuring at admission. No hypoxia. Remains very stable. Blood cx's and sputum cx neg. Cont the following - * zosyn q8h; await ID consult & recs * cont airborne isolation - r/o TB (given the cavitation and risk of such due to Enbrel use for RA) * AFB smear/culture sent but pending * Quantiferon gold sent but pending * HIV test neg - patient made aware * MRSA PLANNER SCHEDULER swab negative * IgG, IgM, IgA all negative * appreciate pulmonary recs - likely to need 4-6 weeks of abx, repeat cxr, f/u Chest CT, and close pulm f/u (2) Recurrent pneumonia: Plan: Multiple episodes of right-sided pneumonia per the patient over several years. I confirmed with her rfid analyst in [place] that she had cxr-confirmed pneu monia of the RUL in 2018. Immune globulins normal. Anatomic abnormality of the right lung leading to recurrent pneumonia? Patient does NOT have cystic fibrosis and did not have sweat test several years ago - peds pulmonary deferred on such. Pulmonary consultation appreciated. repeat chest CT in 6 weeks. If she fails to improve may need outpatient bronch. (3) Mononucleosis: Plan: Diagnosed with such earlier this month. Monospot +. Previously had mono-induced transaminitis - now resolved. [place] symptoms resolved including recent pharyngitis. (4) Rheumatoid arthritis: Plan: previously on Humira, then switched to Enbrel 01/2021. no active flare at this time. Enbrel on hold due to #1 above. (5) DVT prophylaxis: Plan: lovenox 40mg daily - encouraged patient to use while here given her pneumonia, OCP use, recent travels back/forth to [place], etc. Plan: urine HCG neg diet - regular total time today 90 minutes including call to pt's PCP in [place], call to pt's mother, conversation with pulmonary here, review of records, and bedside care Admission and Anticipated Discharge Date Admission Date: April 08, 2021 Subjective patient had uneventful night feels well mild right upper back pain only with taking breaths was doing homework when I came to see her scant cough no dyspnea at rest mild dyspnea with walking to bathroom only no fevers good appetite I spoke with Dr Nakul Spencer's rfid analyst since she was a toddler - and we reviewed her medical history going back about 10 years last documented pneumonia via cxr was 03/2017 - pneumonia was indeed in the RUL he could not find other cxr's to support other cases of pneumonia seen by pulmonary at [facility] in 2019 -- CF testing deferred given good growth, no chronic respiratory symptoms on consistent basis, no steatthorhea, etc PFTs were normal - no obstruction the pulmonary documentation states that she may have had 1-2 documented episodes of pneumonia over her childhood spoke with pt's mother by phone - near 30-minute conversation - extensive update given, questions answered Johanna's assistant manager of operations in [place] is Dr Brown, [facility] she has been seeing this physician since the age of 8 for the JRA Review of Systems Review of Systems: gen - no fevers/chills/sweats/weight loss; good appetite HENT - no URI symptoms cv - no orthopnea or central anterior chest pain pulm - no hemoptysis GI - no pain/N/V Physical Exam Physical Exam: gen - looks well, nontoxic, nad, no resp distress; no cough over my entire 15 min bedside visit mouth - MMM neck - no JVD heart - RRR, s1 s2, no murmur lungs - mild rales RUL, otherwise CTA b/l abd - soft NT ND BS+; spleen tip palpable ext - no edema, pulses 2+ b/l skin -rash on arms mildly improved Results & Data Results & Data ([facility]) Vital Signs (Past 12 Hours) Vital Signs Pulse Resp BP Pulse Ox Pulse Ox 04/09/21 12:00 92 H 20 121/79 04/09/21 10:00 83 24 119/73 04/09/21 09:18 94 H 22 123/80 96 04/09/21 09:14 98 04/09/21 07:00 83 23 96 Laboratory Results Laboratory Results - last 24 hr 04/08/21 18:33 HIV 1&2 Ab/P24 Ag 4thGn Neg cbc, bmp wnl IgG,IgM,IgA wnl sputum cx neg blood cx's neg PG Care Time/CCT Total # of Minutes Spent Total Time Spent with Patient: Total time spent is greater than 50% in coordination of care (as documented) at patient's floor/unit and/or counseling patient: Prolonged Care Time Prolonged Care Time: Yes 90 Coding Level of Care Code 26779 Subseq Hosp Care Lvl 3 (25 - SIGNIFICANT, SEPARATELY IDENTIFIABLE ) Diagnoses Cavitary pneumonia J18.9; J98.4 Recurrent pneumonia J18.9 Mononucleosis B27.90 Rheumatoid arthritis M06.9 DVT prophylaxis Z29.9 Additional Codes Prolonged Care Time - Prolonged Care Time: Yes ([id number]) Time Spent (min) 90
[2021-04-09] MEDS: TRIAMCINOLONE ACET 0.1% CR 80 GM TUBE EXT SCH ×2 (15:55→21:37)
--- NOTE | 2021-04-09 17:08 | Billing Data ---
Date of Service April 09, 2021 Coding Level of Care Code 83363 Initial Inpt Care Lvl 3
[2021-04-10] MEDS: PIPERACILLIN/TAZOBACTAM 3.375 GM in DEXTROSE 5% 100 ML IV SCH ×2 (01:52→10:07)
--- NOTE | 2021-04-10 07:47 | Pulmonology Progress Note ---
Date of Service April 10, 2021 Assessment & Plan (1) Cavitary pneumonia: (2) Recurrent pneumonia: (3) Mononucleosis: Plan: Johanna Frey is a 20-year-old female with past medical history of juvenile rheumatoid arthritis and recent pneumonia diagnosis who is now admitted due to recurrent pneumonia symptoms and findings of cavitary lesion on CT. Cavitary pneumonia - No clear history/risk factors concerning for TB at this time but her immunosuppressive treament for JRA does put her at risk but gets tested yearly and has always been negative - Likely has a bacterial pneumonia which has become a necrosing/cavitating process - Recommend continuing Zosyn at this point, total antibiotics likely 4-6 weeks -- await ID consult for further insight - Recommend follow-up CXR in [address] in 4-6 weeks - If no improvement in 2 weeks, can perform bronchoscopy to obtain cultures and tissue samples - Can consider autoimmune serological testing including ANCA and CINTHIA screens if no improvement in the future - Sputum culture with light normal dawson thus far, HIV negative - Follow AFB cultures, Quantiferon Gold - Continue airborne isolation until TB ruled out Thank you for allowing us to participate in this patient's care. Please refer to Dr. Chavez's attestation for further information. Admission and Anticipated Discharge Date Admission Date: April 08, 2021 Supervising Physician Co-Signing Physician Notes Patient seen and examined resident physician. Agree with assessment and plan aside for any additions/exceptions noted: She has a notable history for being on Enbrel and Humira. She notes that she gets yearly TB testing and has been negative. She denies any obvious risk factors. ID consult is pending. Immunoglobulins were unremarkable. QuantiFERON gold testing negative. HIV screen was negative. Sputum Gram stain was unremarkable. Sputum AFB pending. Patient does not appear toxic or septic at this time. She likely has a bacterial pneumonia which has become a necrosing/cavitating process. Recommend antibiotics for 4-6 weeks and repeat imaging such as a chest x-ray in 2 weeks and then a follow-up CT chest in 4 to 6 weeks. If no improvement in 2 weeks, can perform bronchoscopy to obtain cultures and tissue samples. Would probably hold Enbrel during this period of time, but will defer to infectious disease in terms of guidance. Can consider autoimmune serological testing including ANCA and CINTHIA screens if no improvement in the future. Other possibilities include congenital pulmonary airway malformation or congenital pulmonary atresia. This does not appear to be pulmonary sequestration as there is no clear blood vessel from the systemic cir culation Stable for discharge from my perspective. Constitutional: Patient appears to be of their stated age. Patient is in no apparent distress. Patient is well-developed. Eyes: Pupils are equal round and reactive to light. Conjunctivae are normal. Anicteric sclera. Ears nose, mouth and throat: No obvious deformities. Neck: Trachea is midline. Visual inspection is normal. Respiratory: Clear to auscultation bilaterally. No use of accessory muscles. No significant clubbing noted. Cardiovascular: Regular rate and rhythm. No murmurs. No edema. Gastrointestinal: Normal bowel sounds, soft, nontender and nondistended. No hepatosplenomegaly noted. Musculoskeletal: No cyanosis. Patient is able to move all extremities. Skin: No rashes, warm dry and intact. Neurologic: No obvious focal neurological deficits seen. Psychiatric: Alert and oriented x3 with a euthymic affect. Subjective No acute events overnight. Reports feeling overall well. Does have a more noticeable cough this morning and feels like her phlegm is looser. She is bringin up more sputum. Otherwise her upper back pain is somewhat improved. Review of Systems Review of Systems: Denies f/c, n/v, cough, CP, palp, abd pain, diarrhea, constipation, urinary symptoms, MÉNDEZ, dizziness, unexplained weight loss, weakness, fatigue. Physical Exam Physical Exam: GENERAL: A&Ox3. NAD. HEENT: PERRL, EOMI. Moist mucous membranes. NECK: No lymphadenopathy. CHEST/LUNGS: CTAB A/P. No crackles, wheezes, rales, rhonchi. HEART: RRR. No m/g/r. ABDOMEN: NT/ND, soft. BS+ x4 EXTREMITIES: No cyanosis, no clubbing, no edema SKIN: Warm and dry. No rashes or lesions. PSYCHIATRIC: Euthymic affect, no SI, no pressured speech, no hallucinations. NEUROLOGIC: No FND. CN II-XII grossly intact. Results & Data Results & Data ([facility]) Vital Signs (Past 12 Hours) Vital Signs Pulse Resp BP Pulse Ox 04/10/21 05:36 88 18 113/65 96 04/10/21 01:56 87 16 123/68 97 Critical Care Results & Data Vital Signs (Past 12 Hours) Vital Signs Pulse Resp BP Pulse Ox 04/10/21 05:36 88 18 113/65 96 04/10/21 01:56 87 16 123/68 97 Lab & Micro Results (Past 24 Hours) No Data to Display No Data to Display No Data to Display Microbiology 04/09/21 10:51 Gram Stain - Final Sputum, Expectorated Sputum Culture - Preliminary Light normal dawson present, final report to follow. 04/08/21 18:18 Aerobic Blood Culture - Preliminary Blood No growth in Aerobic bottle after 24 hours. Anaerobic Blood Culture - Preliminary No growth in Anaerobic bottle after 24 hours. 04/08/21 18:33 Aerobic Blood Culture - Preliminary Blood No growth in Aerobic bottle after 24 hours. Anaerobic Blood Culture - Preliminary No growth in Anaerobic bottle after 24 hours. I & O Totals 24 Hours 04/09/21 04/10/21 04/11/21 06:59 06:59 06:59 Intake Total 1735 / 2735 1860 / 1860 Balance 1735 / 2735 1860 / 1860 Cumulative 04/08/21 14:43 thru 04/10/21 06:00 Intake Total 3595 Balance 3595 RT Ventilator Mngmt (Last Documented) Ventilator Ordered Settings Respiratory Rate 18 04/10/21 05:36 Ventilator - PT Measurements Respiratory Rate 18 Resident Activity Tracking Resident Involvement: Resident Care Provided Care Provided: Adult Hospital Medicine
[2021-04-10] MEDS: ADVANCED PROBIOTIC 1250 MG CAPSULE PO SCH (08:44)
[2021-04-10] MEDS: ENOXAPARIN INJ 40 MG/0.4 ML SYR SQ SCH (08:45)
[2021-04-10 08:48] VITALS: PULSE 90
[2021-04-10] MEDS: TRIAMCINOLONE ACET 0.1% CR 80 GM TUBE EXT SCH ×2 (09:00→14:07)
[2021-04-10 14:46] LABS: Quantiferon Mitogen-NIL >10.00 IU/mL; Quantiferon NIL 0.04 IU/mL; Quantiferon TB Gold Plus NEGATIVE (NEGATIVE); Quantiferon TB2-NIL 0.01 IU/mL
--- NOTE | 2021-04-10 15:25 | Discharge Summary ---
Date of Service date of admission - April 08, 2021 date of discharge - April 10, 2021 Admission HPI Per Admitting Provider 20yo female, [employer] student, with history of juvenile rheumatoid arthritis and recurrent pneumonia, presents with complaints of persistent right upper back pain for several weeks. Pleuritic in nature. In addition to the above, she has had intermittent fevers along with URI symptoms dating back to 2020. Patient states that 03/09 into 03/10 she developed URI symptoms. She was seen by her clock repair technician in [place], had negative COVID testing, and was told she had a viral URI. From until she felt unwell with interm ittent fevers to 101 degrees, mild cough, appetite loss, and back pain. She felt well enough to return for the spring at [employer] in [place] ~03/24/21. Upon return to [place], however, she developed severe sore throat. She presented to our ER on 03/25/21 and was diagnosed with mono. She was given a dose of steroid for such. AST/ALT were elevated at that time. COVID testing was negative. Her family came back to [place] the following day and brought her back to [place]. Upon return to [place] she visited a local ER there and was diagnosed with right-sided pneumonia. She was placed on a course of augmentin + zithromax. She continued to feel poorly despite the antibiotics with ongoing intermittent fevers and intermittent rigors. Her last episode of rigors was 04/03, and her last documented fever was 04/04. She did finally feel better on a grand scale late this past week and her appetite improved. She has had minimal cough. She has had dyspnea on exertion. Despite feeling better she continued with right upper back pain over the last week. [facility] to [facility] this [facility]. CTA chest was obtained, and although negative for PE, showed RUL pneumonia with some cavitation, and a small amount of RLL pneumonia. She denies any TB risk factors - does not work in a healthcare or shelter setting, no travel, no work or spending time in prisons, etc. No family history of TB. Up until 01/2021 she was on Humira for her RA. She was changed to Enbrel 01/2021 but hasn't been taking it due to her prolonged illness since February. Patient reports having had 4-5 episodes of right-sided pneumonia over the years. Last episode was 3-4 years ago. She has never been hospitalized for pneumonia. She mentions that she was possibly diagnosed with a "mild form of cystic fibrosis" years ago at [facility] in [place] but doesn't follow regularly with a medical lab technician. Principal Diagnosis RUL/RLL pneumonia Discharge Exam gen - looks well, nontoxic, NAD, no resp distress mouth - MMM neck - no JVD heart - RRR, s1 s2, no murmur lungs - mild rales RUL, otherwise CTA b/l abd - soft NT ND BS+; spleen tip palpable ext - no edema, pulses 2+ b/l skin - rash on arms mildly improved Discharge Data Allergies Allergy/AdvReac Type Severity Reaction Status Date / Time pineapple Allergy Severe THROAT Verified 04/08/21 17:51 SWELLS SHUT Sulfa (Sulfonamide Allergy Intermediate FULL BODY Verified 04/08/21 17:51 Antibiotics) RASH Consultations [facility] Pul[facility] Procedures Performed Quantiferon Gold Test -- negative COVID-19 Test -- negative Ordered Studies Chest X-Ray 04/08/21 15:03 XR chest 1V portable CLINICAL HISTORY: SOB TECHNIQUE: Single frontal radiograph of the chest was obtained. Comparison: None available at the time of this dictation. FINDINGS: No lines and tubes are seen. The cardiomediastinal silhouette is normal. The lungs are clear. No evidence of pleural effusion or pneumothorax. IMPRESSION: No acute chest disease. ACT 112: Negative or not required by law. Electronically signed by: Antonio Barth M.D. 04/08/2021 4:05 PM Chest CTA 04/08/21 15:47 CT angio chest PE protocol CLINICAL HISTORY: PE TECHNIQUE: Multidetector row helical CT of the chest was performed. Coronal and sagittal reformations were obtained. Coronal and sagittal MIPS were obtained from the axial data set and were submitted for review. Automated dose lowering techniques and/or adjustment according to patient size were utilized for this exam. Comparison: Comparison is made to chest one view 04/08/2021 FINDINGS: Lungs and pleura: Focal opacities are seen in the right upper lobe and right lower lobe. The upper lobe focus contains some cavitation. Heart and pericardium: Heart size is normal. No pericardial effusion. Vessels: No evidence of pulmonary embolism. Mediastinum and jia: Unremarkable. Chest wall and lower neck: Unremarkable. Abdomen: Unremarkable. Bones: Unremarkable. IMPRESSION: 1. No evidence of pulmonary embolism. 2. Airspace opacities in the right upper lobe and right lower lobe favored to represent pneumonia. The right upper lobe contains necrosis and cavitation and may represent pulmonary abscess. ACT 112: Negative or not required by law. Electronically signed by: Antonio Barth M.D. 04/08/2021 4:49 PM Hospital Course (1) Cavitary pneumonia: RUL pneumonia with mild cavitation. Small amount of RLL pneumonia as well on admission CT. Suspected to be bacterial in etiology. s/p course of augmentin + zithromax as outpatient prior to this admission. Her fever, chills, and anorexia improved on oral antibiotics prior to this admission. At time of ER presentation was placed on IV zosyn, and this was continued during her stay. Due to the small amount of cavitation in the RUL -- along with her use of immunosuppressive therapy for her rheumatoid arthritis (Enbrel) -- she was placed in airborne isolation in the event her findings were due to tuberculosis. Quantiferon gold test was sent and ultimately returned negative. In addition, AFB smear was negative. Thus, tuberculosis was highly unlikely. RUL pneumonia with cavitation was likely a pulmonary abscess. HIV testing was negative. IgG, IgM, and IgA immunoglobulin levels were normal. MRSA Club Car Attendant swab was negative. Labs, vital signs, and O2 sats were all stable while hospitalized. She never had an O2 requirement, fever, or other signs of sepsis. Ms Frey was seen by Ruperto Regalado during the stay. In addition to the above the following were advised - * minimum of 2 weeks of Augmentin 875mg twice daily following discharge * depending on her clinical response she could potentially need more antibiotics - to be determined at time of hospital follow-up * repeat chest x-ray in 2 weeks post-discharge * chest CT in 6 weeks post-discharge * [facility] follow-up in 2-3 weeks after discharge Bacterial sputum culture was negative. Blood cultures were negative prior to discharge. (2) Recurrent pneumonia: Multiple episodes of right-sided pneumonia per the patient over several years. I confirmed with her clock repair technician in [place] that she had cxr-confirmed pneumonia of the RUL in 2018. Records from her PCP's office confirmed she had seen pediatric pulmonary in [place] in the past. PFTs from that consultation were normal. Cystic fibrosis was NOT suspected. Does she have an anatomic abnormality of the right lung leading to recurrent pneumonia in the RUL? Pulmonary consult was completed while here and she will have a repeat chest CT in 6 weeks following discharge. If she fails to improve with the plan in #1 above she may need outpatient bronchoscopy. Of note - IgG, IgM, and IgA immunoglobulin levels were normal. (3) Mononucleosis: Diagnosed with such earlier this month. Monospot +. Previously had mono-induced transaminitis - now resolved. [place] symptoms were resolved including recent pharyngitis. (4) Rheumatoid arthritis: Previously on Humira, then switched to Enbrel 01/2021. No active flare at this time. Her honing job setter in [place], Dr Cheko Myles, was contacted regarding this hospital stay. She advised to continue holding the Enbrel and that she will contact the patient to arrange follow-up after discharge. Of note - patient had a mild rash on her arms at time of admission. This may have been a mono-related rash. She will continue topical steroid cream to the rash after discharge. Total Time Total Time Spent Total Time Spent (In Minutes): 45 Discharge Plan Discharge Items Patient Disposition: Home - Self-Care Reason For Visit: CAVITARY PNEUMONIA; R/O TUBERCULOSIS Discharge Diagnosis: 1. Pneumonia of the right upper lobe - and a minimal amount in the right lower lobe - improving 2. Small amount of cavitation of the right upper lobe pneumonia - likely due to bacterial pneumonia, not tuberculosis 3. Tuberculosis testing was NEGATIVE 4. Rheumatoid arthritis 5. Upper back pain - likely due to #1 above Activity: As commented below Activity Comment: gradually increase your activities over the next 7-10 days Exercise/Sports: Wait until after follow-up appointment Driving/Machine Use: No limitations Non-emergency contact: Primary Care Provider and Senior Benefits Manager Call non-emergency contact if: you have any medication questions, your symptoms worsen and you have a fever Follow-up/Referrals: Dominic Montero MD [Physician] - 05/07/21 8:30 am ([facility]) [facility] [Primary Care Provider] - (Please call [facility] to schedule a hospital follow up appointment. You will need your student ID number when you call to schedule. Recommend a follow-up with them in 1 week.) Diet: Regular Addtl Attending Provider Instructions: Johanna, You were hospitalized for pneumonia of the right lung. When you underwent a CT scan of the lungs the right upper lobe pneumonia showed a small amount of "cavitation." We call this cavitary pneumonia. Some times it is called "pulmonary abscess." Most cases of this are caused by bacteria which is why your recent course of antibiotics resolved your fevers at home. Because of your rheumatoid arthritis and use of Enbrel we wanted to ensure you did not have tuberculosis causing the cavitation. Your tuberculosis smear and culture in the lab are thus far negative, and your blood test for tuberculosis was also negative. It is highly unlikely that you have tuberculosis. Thus, you do not need to isolate at home/stay away from others. You were seen by Dr Chavez from our pulmonary team. He, along with the infection doctors, have recommended at least 2 weeks of oral antibiotics at home. This course could be extended another 2-4 weeks in the future if the pneumonia is not clearing. Of note - your HIV test was negative. Your immunoglobulin levels (IgG, IgA, and IgM) were all normal. Your recent abnormal LFTs from the mono infection have normalized. I did speak with Dr Alonso in [place] regarding your past history of pneumonia. It will be important to follow closely with the lung doctors here and in [place] regarding this issue. Recommendations - 1. amoxicillin-clavulanate 875mg - 1 tablet twice daily for 14 days. Take your first dose tonight with food. This is your antibiotic. 2. take probiotics once daily for the next 14 days. Eat extra yogurt as well. This may help prevent diarrhea from the antibiotics. 3. you will need a repeat chest x-ray in 2 weeks. This will take place at [facility]. See below. 4. you will need a repeat chest CT in about 6 weeks; Dr Chavez - the lung doctor - will arrange this down the line. 5. for upper back discomfort you can continue naprosyn 500mg up to twice daily as needed for pain. You can also take qssi-[id number]-fcfcyge tylenol up to 3000mg in 24 hours, as needed, for pain. 6. follow-up --- see separate section 7. know that antibiotics can interfere with the effectiveness of control pills. Thus, until your next menstrual cycle, be sure to use a second form of control if sexually active. 8. ok to use the triamcinolone cream for the rash on your arms, in thin amounts up to 3 times a day, for about a week. 9. if any culture comes back positive we will call you with those results and any recommendations. 10. again I have a call out to Dr Myles concerning your Enbrel. Please hold the Enbrel for now. If Dr Myles recommends something different I will let you know. Return to [facility] if - * you have recurrent fevers over 100 degrees * you have worsening shortness of breath * you have chest pains * you develop severe diarrhea * your back pain worsens * any other concerns It was our pleasure to care for you at [facility]! Continue to feel better, Dr Gallo Addtl Pencil Inspector Provider Instructions: We would like you to get a follow up chest XR done in approximately two weeks. To get your chest XR, just come to the main clerical receptionist desk of the hospital. It is walk-in, you do not need an appointment. Hours are Friday-Friday 7am-7pm and Friday 7am-12pm. The order is on file at the hospital, so you do not need to bring anything with you other than your photo ID. Please make sure that you get this chest XR done before you follow up with pulmonology. Pending Studies at Discharge: Yes Studies:: 1. blood cultures - but thus far negative (no bacterial infection of the blood) 2. sputum culture - thus far negative 3. tuberculosis culture and smear - negative Stand-Alone Forms: My [facility], Smoking Cessation Medications and DC Order Prescriptions: New triamcinolone acetonide 0.1 % Cream 1 applic EXT TID PRN (Reason: rash on arms) Qty: 1 RF: 0 Advanced Probiotic 625 mg (10 billion cell) Capsule 2 cap PO DAILY 14 Days Qty: 28 RF: 2 amoxicillin-pot clavulanate [Augmentin] 875-125 mg tablet 1 tab PO BID 14 Days Qty: 28 RF: 1 Continued naproxen 500 mg tablet 500 mg PO BID PRN (Reason: Pain) RF: 0 ethynodiol diac-eth estradiol [Kelnor ()] 1-35 mg-mcg tablet 1 tab PO DAILY RF: 0 Discontinued Enbrel SureClick 50 mg/mL (1 mL) pen injector 50 mg SUBCUT WK RF: 0 Discharge Orders: Discharge Order (Routine); Ordered 04/10/21 Ordered By: Chester Gallo Admission Data Admit Date/Time: 04/08/21 19:00 Attending Provider: Chester Gallo Admit Provider: Chester Gallo Primary Care Provider: [facility] Other Providers: Anastacio Mcbride ; Chester Gallo ; Raul Pedroza ; Ambrose Lucas ; Akshat Stiles I. ; Luis De La Rosa II ; Selena Luna ; Bradley Sandoval ; Harish Vaca ; Dat Chavez Other Interventions: Discharge Summary Assessment (RN) Last Done: 04/10/21 17:02 Coding Level of Care Code D/C DAY MANAGEMENT >30 MINS Diagnoses Cavitary pneumonia J18.9; J98.4 Recurrent pneumonia J18.9 Mononucleosis B27.90 Rheumatoid arthritis M06.9
--- NOTE | 2021-04-10 16:44 | Billing Data ---
Date of Service April 10, 2021 Coding Level of Care Code 87533 Subseq Hosp Care Lvl 1
[2021-04-10 17:05] VITALS: BP 123/74; O2SAT 98
--- NOTE | 2021-04-11 10:16 | Pharmacy Report ---
ED Pharmacist Culture FollowUP - Culture Follow Up Note Date of Service: April 11, 2021 Notes:: BCx (+) Gram (+) bacilli and GNB in 1/4 bottles. Patient admitted and has since been discharged on Augmentin for a recurrent pneumonia with mild cavitation. ID and pulmonary consulted. Notified admitting provider, Dr Gallo, of culture results. Does not feel she needs to be called back at this time as she was clinically stable at discharge. Dr. Gallo plans to follow culture.
== END 2021-04-10 17:00 | disposition home or self-care (01) | DRG 195 ==
LOC: ED 14:43 → EDINP 14:43

== ENCOUNTER 2021-07-11 23:55 | Observation (INO) ==
[2021-07-12 00:45] LABS: Basophils # (auto) 0.02 K/uL (0-0.2); Basophils % (auto) 0.2 %; Eosinophils # (auto) 0.05 K/uL (0-0.5); Eosinophils % (auto) 0.4 %; Hematocrit (blood only) 35.7 % (37-47); Hemoglobin 12.4 g/dL (12.0-16.0); Immature Granulocytes # (auto) 0.02 K/uL (0.00-0.02); Immature Granulocytes % (auto) 0.2 %; Lymphocytes # (auto) 2.16 K/uL (1.2-3.4); Lymphocytes % (auto) 18.9 %; Mean Corpuscular Hemoglobin 31.1 pg (25-34); Mean Corpuscular Hgb Conc 34.7 g/dL (32-36); Mean Corpuscular Volume 89.5 fL (80-100); Mean Platelet Volume 10.6 fL (7.4-10.4); Monocytes # (auto) 0.85 K/uL (0.11-0.59); Monocytes % (auto) 7.4 %; Neutrophils # (auto) 8.32 K/uL (1.4-6.5); Neutrophils % (auto) 72.9 %; Platelet Count 286 K/uL (130-400); RDW Coefficient of Variation 12.4 % (11.5-14.5); Red Blood Count 3.99 M/uL (4.2-5.4); White Blood Count 11.42 K/uL (4.8-10.8)
[2021-07-12 01:09] LABS: Albumin Globulin Ratio 1.3 (0.9-2); Albumin Level 3.9 gm/dl (3.4-5.0); BUN Creatinine Ratio 22.7 (10-20); Bilirubin,Total 0.5 mg/dl (0.2-1.0); Calcium 9.1 mg/dl (8.5-10.1); Creatinine Clr Calc Pharmacy 149.3 ml/min; Est GFR (African American) 148.4 ml/min; Est GFR (Non-African American) 128.1 ml/min; Globulin 2.9 gm/dl (2.5-4.0); Potassium 3.6 mmol/L (3.5-5.1); Total Protein 6.8 gm/dl (6.0-8.3)
[2021-07-12 01:26] LABS: Lyme Ab IgG w/WB Rflx Negative (Negative); Lyme Ab IgM w/WB Rflx Negative (Negative)
[2021-07-12] MEDS ORDERED: VANCOMYCIN CONSULT ACTIVE PRN ×2 (03:08→05:32)
[2021-07-12] MEDS ORDERED: VANCOMYCIN HCL 1,750 MG in SODIUM CHLORIDE 0.9% 500 ML IV ONE (03:08)
--- NOTE | 2021-07-12 03:38 | Emergency Department Note ---
History of Present Illness General Chief complaint: Skin Problem Stated complaint: CELLULITIS ON ARM GETTING WORSE Time Seen by Provider: 07/12/21 00:13 History of Present Illness Maximum Pain Intensity: 5 This is a 20-year-old female presenting to the emergency department for evaluation of worsening cellulitis to the left forearm. The patient has a history of rheumatoid arthritis and is on Humira. The patient was seen and evaluated about a week ago in this facility and started on doxycycline. The patient initially had some improvement of symptoms but today she feels much worse. She feels the area is very swollen, much more than before. The patient is able to move her left hand and does not have into the left bicep area. The patient does have a history of erythema nodosum and does have active process on her left pabon today. She rates her overall discomfort a 5/10. Home Medications Medication Instructions Recorded Confirmed Type ethynodiol diacetate-ethinyl 1 tab PO DAILY 03/25/21 07/12/21 History estradiol 1 mg-35 mcg tablet (Kelnor) cephalexin 500 mg capsule 500 mg PO QID 9 Days #36 cap 07/05/21 07/12/21 Rx doxycycline hyclate 100 mg capsule 100 mg PO BID 9 Days #18 cap 07/05/21 07/12/21 Rx adalimumab 40 mg/0.4 mL 40 mg SUBCUT .EVERY 2 WEEKS 07/12/21 07/12/21 History subcutaneous pen kit (Humira(CF) Pen) clobetasol 0.05 % topical ointment 1 applic TOPICAL TID PRN 07/12/21 07/12/21 History Allergies Allergy/AdvReac Type Severity Reaction Status Date / Time pineapple Allergy Severe THROAT Verified 07/12/21 00:35 SWELLS SHUT Sulfa (Sulfonamide Allergy Intermediate FULL BODY Verified 07/12/21 00:35 Antibiotics) RASH Past Med/Surg History Medical History (Updated 07/12/21 @ 06:10 by Jonnie Collado PA-C) Acute pharyngitis due to infectious mononucleosis 02/2021 Juvenile rheumatoid arthritis Recurrent pneumonia Surgical History H/O wisdom tooth extraction Hx of tonsillectomy S/P foot surgery, right Family History Mother Breast cancer Ulcerative colitis Lupus Social History Smoking Status: Never smoker Hx Alcohol Use: No Hx Substance Use: No Preferred Language: Kyrgyz Communication Ability: Effective Resident Care Provider Required: No Beliefs That Will Affect Care: None marital status: Single Current Living Situation: Other Current Living Situation Comment: student at [employer], has roommate current occupational status: student current occupation: [employer] student, kinesiology major Feels Safe at Home: Yes Assistive Devices: None Review of Systems A total of 10 systems reviewed and were otherwise negative Physical Exam Vital Signs Vital Signs - 24 hr 07/11/21 23:59 07/12/21 01:33 Temperature 36.6 C Temperature Source Oral Pulse Rate 80 Respiratory Rate 18 Respiratory Effort / Characteristics Non-Labored Spontaneous Non-Labored Respiratory Depth Normal Normal Respiratory Pattern Regular Blood Pressure 108/73 Blood Pressure Mean 84 Blood Pressure Position Sitting Pulse Oximetry 99 Oxygen Delivery Method Room Air Sepsis Recent Fever Within 48 Hours No Sepsis New/Unexplained Change in Mental Status N/A Sepsis Action Taken by Nursing No Action Required VITALS: Vitals are noted on the nurse's note and reviewed by myself. Vital signs stable. GENERAL: Well-developed, well-nourished, white female, who is in no acute distress and resting comfortably. Patient is cooperative with the examination. HEAD: Normocephalic atraumatic. HEART: Regular rate and rhythm without murmurs gallops or rubs. LUNGS: Clear to auscultation bilaterally without wheezes, rales or rhonchi. No retractions or accessory muscle use. ABDOMEN: Positive normal bowel sounds x 4. Soft, nontender, without masses or organomegaly. No guarding or rebound tenderness. MUSCULOSKELETAL: Edema and erythema noted primarily across the volar aspect of the left forearm. This area is quite tender throughout. No palpable cord. No distinct abscess identified. Sales Order Clerk strength is 5/5 and neurovascular status is intact distally. NEURO: Patient was alert and oriented to person place and time. CN II through XII grossly intact. Course Administered Medications Discontinued Medications Vancomycin HCl 1,750 mg/ (Sodium Chloride) 535 mls @ 200 mls/hr IV NOW ONE Stop: 07/12/21 05:48 Last Admin: 07/12/21 03:51 Dose: 200 mls/hr Documented by: [id number] Medical Decision Making Differential Diagnosis Differential diagnosis includes: Etiologies such as cellulitis, abscess, osteomyelitis, MRSA infection, DVT, necrotizing fasciitis, dermatitis, drug eruption, as well as others were entertained Laboratory Data Result diagrams: 07/12/21 00:30 07/12/21 00:30 Lab Results 07/12/21 07/12/21 07/12/21 Range/Units 00:30 00:30 00:30 WBC 11.42 H (4.8-10.8) K/uL RBC 3.99 L (4.2-5.4) M/uL Hgb 12.4 (12.0-16.0) g/dL Hct 35.7 L (37-47) % MCV 89.5 (80-100) fL MCH 31.1 (25-34) pg MCHC 34.7 (32-36) g/dL RDW Std Deviation 40.0 (36.4-46.3) fL RDW Coeff of Sol 12.4 (11.5-14.5) % Plt Count 286 (130-400) K/uL MPV 10.6 H (7.4-10.4) fL Immature Gran % (Auto) 0.2 % Neut % (Auto) 72.9 % Lymph % (Auto) 18.9 % [place] % (Auto) 7.4 % Eos % (Auto) 0.4 % Baso % (Auto) 0.2 % Neut # (Auto) 8.32 H (1.4-6.5) K/uL Lymph # (Auto) 2.16 (1.2-3.4) K/uL [place] # (Auto) 0.85 H (0.11-0.59) K/uL Eos # (Auto) 0.05 (0-0.5) K/uL Baso # (Auto) 0.02 (0-0.2) K/uL Immature Gran # (Auto) 0.02 (0.00-0.02) K/uL ESR 28 H (0-20) mm/hr Sodium 137 (136-145) mmol/L Potassium 3.6 (3.5-5.1) mmol/L Chloride 106 (98-107) mmol/L Carbon Dioxide 23 (21-32) mmol/L Anion Gap 8 (3-11) BUN 15 (6-23) mg/dl Creatinine 0.66 (0.6-1.2) mg/dl Est Cr Clr Drug Dosing 149.3 ml/min Est GFR ( Amer) 148.4 ml/min Est GFR (Non-Af Amer) 128.1 ml/min BUN/Creatinine Ratio 22.7 H (10-20) Glucose 94 (70-99(Fasting)) mg/dl Lactate (0.4-2.0) mmol/L Calcium 9.1 (8.5-10.1) mg/dl Total Bilirubin 0.5 (0.2-1.0) mg/dl AST 13 (13-39) U/L ALT 9 (7-52) U/L Alkaline Phosphatase 63 (34-104) U/L Total Protein 6.8 (6.0-8.3) gm/dl Albumin 3.9 (3.4-5.0) gm/dl Globulin 2.9 (2.5-4.0) gm/dl Albumin/Globulin Ratio 1.3 (0.9-2) Lyme Disease IgG Ab (Negative) Lyme Disease IgM Ab (Negative) SARS-CoV-2, RNA, NAAT (NEGATIVE) 07/12/21 07/12/21 07/12/21 Range/Units 00:30 03:21 03:41 WBC (4.8-10.8) K/uL RBC (4.2-5.4) M/uL Hgb (12.0-16.0) g/dL Hct (37-47) % MCV (80-100) fL MCH (25-34) pg MCHC (32-36) g/dL RDW Std Deviation (36.4-46.3) fL RDW Coeff of Sol (11.5-14.5) % Plt Count (130-400) K/uL MPV (7.4-10.4) fL Immature Gran % (Auto) % Neut % (Auto) % Lymph % (Auto) % [place] % (Auto) % Eos % (Auto) % Baso % (Auto) % Neut # (Auto) (1.4-6.5) K/uL Lymph # (Auto) (1.2-3.4) K/uL [place] # (Auto) (0.11-0.59) K/uL Eos # (Auto) (0-0.5) K/uL Baso # (Auto) (0-0.2) K/uL Immature Gran # (Auto) (0.00-0.02) K/uL ESR (0-20) mm/hr Sodium (136-145) mmol/L Potassium (3.5-5.1) mmol/L Chloride (98-107) mmol/L Carbon Dioxide (21-32) mmol/L Anion Gap (3-11) BUN (6-23) mg/dl Creatinine (0.6-1.2) mg/dl Est Cr Clr Drug Dosing ml/min Est GFR ( Amer) ml/min Est GFR (Non-Af Amer) ml/min BUN/Creatinine Ratio (10-20) Glucose (70-99(Fasting)) mg/dl Lactate 0.8 (0.4-2.0) mmol/L Calcium (8.5-10.1) mg/dl Total Bilirubin (0.2-1.0) mg/dl AST (13-39) U/L ALT (7-52) U/L Alkaline Phosphatase (34-104) U/L Total Protein (6.0-8.3) gm/dl Albumin (3.4-5.0) gm/dl Globulin (2.5-4.0) gm/dl Albumin/Globulin Ratio (0.9-2) Lyme Disease IgG Ab Negative (Negative) Lyme Disease IgM Ab Negative (Negative) SARS-CoV-2, RNA, NAAT NEGATIVE (NEGATIVE) Imaging Data Radiologist's Impression: Preliminary Findings Only See Final Report For Complete Findings US VENOUS LEFT UPPER EXTREMITY: No evidence of deep vein thrombosis. Radiologist: Nicola Johnson MD [facility] Narrative Physical exam and history were performed. Nursing notes, EMR, and Medication List were personally reviewed. Patient appears to have erythema and edema to her left arm. This is reportedly worse than before, and she is quite tender. IV access was established and labs were obtained. The patient was sent to ultrasound for further evaluation. Patient's blood work is as above and was reviewed. She does have a slightly elevated white count of 11.4. She does not have significant anemia or gross electrolyte imbalance. Sed rate is 28. Lactic acid is negative. Lyme is negative. COVID is negative. Ultrasound was reviewed by myself and radiology showing no acute process such as DVT. On reevaluation the patient continues to have some discomfort. I did discuss options of care with the patient and elected to start her on IV vancomycin. Her symptoms certainly could be cellulitic as she is immunocompromise, however erythema nodosum cannot be ruled out. The case was discussed with the on-call hospitalist who agreed to evaluate her here in the ER. Please see their dictation for further patient course, plan, and disposition. The chart was completed utilizing [employer] Speech Voice Recognition Software. Grammatical errors, random word insertions, pronoun errors, and incomplete sentences are an occasional consequence of this system due to software limitations, ambient noise, and hardware issues. Any formal questions or concerns about the content, text, or information contained within the body of this dictation should be directly addressed to the provider for clarification. . Impression & Plan Cellulitis of forearm, left, Immunocompromised Discharge Plan Visit Data Chief Complaint: Skin Problem Stated Complaint: CELLULITIS ON ARM GETTING WORSE ED Provider: Bradley Davis ED Midlevel Provider: Jonnie Collado Discharge Problem: Cellulitis of forearm, left, Immunocompromised Patient Disposition: Admitted As Inpatient Discharge Instructions Interventions: ED Discharge Assessment Last Done: 07/12/21 05:00
--- NOTE | 2021-07-12 04:19 | History & Physical Report ---
Date of Service July 12, 2021 Assessment & Plan (1) Cellulitis of forearm, left: Plan: Continue vancomycin IV begun in ED (2) Erythema nodosum: Plan: Left upper extremity and left lower extremity Methylprednisolone 40 mg IV every 8 hours (3) Juvenile rheumatoid arthritis: Plan: Has typically been on Humira every other Friday, and has missed dosages for the past 4 weeks (4) Immunocompromised: Plan: Immunocompromise due to use of Humira History of Present Illness Chief Complaint: The patient presents to the emergency department with complaint of worsening left forearm redness, pain and swelling Primary Care Provider: [facility] The patient is a 20-year-old female with a past medical history including juvenile rheumatoid arthritis, 1 mononucleosis, recurrent pneumonia, cavitary pneumonia, immunocompromised on Humira. She presented to the ED initially on 07/04 and then 07/06/2021, having been given a treatment of ceftriaxone IV on 07/04, and started on cephalexin and doxycycline. She returned to the emergency department on 07/06, and at that time was given Ancef IV, and continued on ce phalexin and doxycycline. Due to continued worsening of her left forearm, she presents to the emergency department as noted. Patient also notes a similar area on her left anterior tibial area, which is similar to a previous area on her right pabno, that had been biopsied with no definite diagnosis in the past Allergies Allergy/AdvReac Type Severity Reaction Status Date / Time pineapple Allergy Severe THROAT Verified 07/12/21 00:35 SWELLS SHUT Sulfa (Sulfonamide Allergy Intermediate FULL BODY Verified 07/12/21 00:35 Antibiotics) RASH Home Medications Medication Instructions Recorded Confirmed Type ethynodiol diacetate-ethinyl 1 tab PO DAILY 03/25/21 07/12/21 History estradiol 1 mg-35 mcg tablet (Kelnor) cephalexin 500 mg capsule 500 mg PO QID 9 Days #36 cap 07/05/21 07/12/21 Rx doxycycline hyclate 100 mg capsule 100 mg PO BID 9 Days #18 cap 07/05/21 07/12/21 Rx adalimumab 40 mg/0.4 mL 40 mg SUBCUT .EVERY 2 WEEKS 07/12/21 07/12/21 History subcutaneous pen kit (Humira(CF) Pen) clobetasol 0.05 % topical ointment 1 applic TOPICAL TID PRN 07/12/21 07/12/21 History Past Med/Surg History Medical History (Updated 07/12/21 @ 04:18 by Sundar Franz MD) Acute pharyngitis due to infectious mononucleosis 02/2021 Juvenile rheumatoid arthritis Recurrent pneumonia Surgical History H/O wisdom tooth extraction Hx of tonsillectomy S/P foot surgery, right Family History Mother Breast cancer Ulcerative colitis Lupus Social History Smoking Status: Never smoker Hx Alcohol Use: No Hx Substance Use: No Preferred Language: Wallisian Communication Ability: Effective Beliefs That Will Affect Care: None marital status: Single Current Living Situation: Other Current Living Situation Comment: roomate at [employer] current occupational status: student current occupation: [employer] student, kinesiology major Feels Safe at Home: Yes Assistive Devices: None Review of Systems Review of Systems: The patient denies chest pain, palpitations, shortness of breath, dyspnea on exertion, cough, sore throat, fevers, chills, sweats, weight change, fatigue, nausea, vomiting, diarrhea , constipation, abdominal pain, pelvic pain, blood in urine or stool, dysuria, urinary frequency or urgency, lightheadedness, dizziness, headache, memory loss, loss of consciousness, imbalance, focal or generalized weakness, generalized arthralgias or myalgias, back or neck pain, or night sweats. The review of systems is otherwise negative other than for that already noted above, and at least 10 systems have been reviewed. Physical Exam Physical Exam: The patient is awake, alert and oriented 3, well developed and well nourished, normocephalic and atraumatic, lying in bed and in no acute distress. HEENT--PERRL, EOMI, mucous membranes and oropharynx normal. Neck--supple. No JVD. No bruits. Thyroid normal, trachea midline, no adenopath y. Heart--normal S1 and S2. No murmurs, rubs or gallops. Lungs--clear bilaterally, no respiratory distress, no accessory muscle use. Abdomen--normal bowel sounds and soft. Nontender. Nondistended, no hernias or masses, no organomegaly. Extremities--no cyanosis or clubbing. No edema. Dermatologic--left forearm with area of erythema, redness and warmth, with similar area on lower left anterior tibial surface Neurologic--cranial nerves II through XII grossly intact. Rheumatologic--normal range of motion. Psychiatric--normal affect. Results & Data Results & Data ([facility]) Vital Signs (Past 12 Hours) Vital Signs Temp Pulse Pulse Resp BP BP Pulse Ox 07/12/21 03:53 82 18 119/67 98 07/11/21 23:59 36.6 C 80 18 108/73 99 Laboratory Results Laboratory Results WBC 11.42 K/uL (4.8-10.8) H 07/12/21 00:30 RBC 3.99 M/uL (4.2-5.4) L 07/12/21 00:30 Hgb 12.4 g/dL (12.0-16.0) 07/12/21 00:30 Hct 35.7 % (37-47) L 07/12/21 00:30 MCV 89.5 fL (80-100) 07/12/21 00:30 MCH 31.1 pg (25-34) 07/12/21 00:30 MCHC 34.7 g/dL (32-36) 07/12/21 00:30 RDW Std Deviation 40.0 fL (36.4-46.3) 07/12/21 00:30 RDW Coeff of Sol 12.4 % (11.5-14.5) 07/12/21 00:30 Plt Count 286 K/uL (130-400) 07/12/21 00:30 MPV 10.6 fL (7.4-10.4) H 07/12/21 00:30 Immature Gran % (Auto) 0.2 % 07/12/21 00:30 Neut % (Auto) 72.9 % 07/12/21 00:30 Lymph % (Auto) 18.9 % 07/12/21 00:30 [place] % (Auto) 7.4 % 07/12/21 00:30 Eos % (Auto) 0.4 % 07/12/21 00:30 Baso % (Auto) 0.2 % 07/12/21 00:30 Neut # (Auto) 8.32 K/uL (1.4-6.5) H 07/12/21 00:30 Lymph # (Auto) 2.16 K/uL (1.2-3.4) 07/12/21 00:30 [place] # (Auto) 0.85 K/uL (0.11-0.59) H 07/12/21 00:30 Eos # (Auto) 0.05 K/uL (0-0.5) 07/12/21 00:30 Baso # (Auto) 0.02 K/uL (0-0.2) 07/12/21 00:30 Immature Gran # (Auto) 0.02 K/uL (0.00-0.02) 07/12/21 00:30 ESR 28 mm/hr (0-20) H 07/12/21 00:30 Sodium 137 mmol/L (136-145) 07/12/21 00:30 Potassium 3.6 mmol/L (3.5-5.1) 07/12/21 00:30 Chloride 106 mmol/L (98-107) 07/12/21 00:30 Carbon Dioxide 23 mmol/L (21-32) 07/12/21 00:30 Anion Gap 8 (3-11) 07/12/21 00:30 BUN 15 mg/dl (6-23) 07/12/21 00:30 Creatinine 0.66 mg/dl (0.6-1.2) 07/12/21 00:30 Est Cr Clr Drug Dosing 149.3 ml/min 07/12/21 00:30 Est GFR ( Amer) 148.4 ml/min 07/12/21 00:30 Est GFR (Non-Af Amer) 128.1 ml/min 07/12/21 00:30 BUN/Creatinine Ratio 22.7 (10-20) H 07/12/21 00:30 Glucose 94 mg/dl (70-99(Fasting)) 07/12/21 00:30 Lactate 0.8 mmol/L (0.4-2.0) 07/12/21 03:21 Calcium 9.1 mg/dl (8.5-10.1) 07/12/21 00:30 Total Bilirubin 0.5 mg/dl (0.2-1.0) 07/12/21 00:30 AST 13 U/L (13-39) 07/12/21 00:30 ALT 9 U/L (7-52) 07/12/21 00:30 Alkaline Phosphatase 63 U/L (34-104) 07/12/21 00:30 Total Protein 6.8 gm/dl (6.0-8.3) 07/12/21 00:30 Albumin 3.9 gm/dl (3.4-5.0) 07/12/21 00:30 Globulin 2.9 gm/dl (2.5-4.0) 07/12/21 00:30 Albumin/Globulin Ratio 1.3 (0.9-2) 07/12/21 00:30 Lyme Disease IgG Ab Negative (Negative) 07/12/21 00:30 Lyme Disease IgM Ab Negative (Negative) 07/12/21 00:30 Code Status & VTE Plan Code Status Full code VTE Prophylaxis Plan VTE Prophylaxis will be ordered: Yes PG Care Time/CCT Total # of Minutes Spent Total Time Spent with Patient: Total time spent is greater than 50% in coordination of care (as documented) at patient's floor/unit and/or counseling patient: Coding Level of Care Code INT OBSERVATION CARE 70M LVL 3 Diagnoses Cellulitis of forearm, left L03.114 Erythema nodosum L52 Juvenile rheumatoid arthritis M08.00 Immunocompromised D84.9
[2021-07-12] MEDS ORDERED: ACETAMINOPHEN 325 MG TAB PO PRN (05:32)
[2021-07-12] MEDS ORDERED: ONDANSETRON INJ 2 MG/ML 2 ML VIAL IV PRN (05:32)
[2021-07-12] MEDS ORDERED: VANCOMYCIN HCL 1,250 MG in SODIUM CHLORIDE 0.9% 500 ML IV SCH (05:32)
--- NOTE | 2021-07-12 05:57 | Pharmacy Report ---
Pharmacy Abx/Gly Intl Consult - Date of Service July 12, 2021 - Scope Pharmacy has been consulted by Dr. Franz to manage Vancomycin for this patient as per the Pharmacy & Therapeutics Committee approved dosing protocols. - Subjective The patient is a 20 year old F admitted on 07/12/21 03:51. - Objective Height: 5 ft 5 in Weight: 87 kg Vital Signs (Past 12hrs): Vital Signs Temp Pulse Pulse Resp BP BP Pulse Ox 07/12/21 05:36 36.9 C 72 18 106/85 96 07/12/21 05:32 36.9 C 72 16 106/85 96 07/12/21 05:00 89 18 128/69 99 07/12/21 03:53 82 18 119/67 98 07/11/21 23:59 36.6 C 80 18 108/73 99 Accuchecks BSG (last 24hrs): 07/12/21 00:30 Glucose 94 Lab Results (24hrs): Laboratory Results - last 24 hr 07/12/21 07/12/21 07/12/21 00:30 00:30 00:30 WBC 11.42 H RBC 3.99 L Hgb 12.4 Hct 35.7 L MCV 89.5 MCH 31.1 MCHC 34.7 RDW Std Deviation 40.0 RDW Coeff of Sol 12.4 Plt Count 286 MPV 10.6 H Immature Gran % (Auto) 0.2 Neut % (Auto) 72.9 Lymph % (Auto) 18.9 [place] % (Auto) 7.4 Eos % (Auto) 0.4 Baso % (Auto) 0.2 Neut # (Auto) 8.32 H Lymph # (Auto) 2.16 [place] # (Auto) 0.85 H Eos # (Auto) 0.05 Baso # (Auto) 0.02 Immature Gran # (Auto) 0.02 ESR 28 H Sodium 137 Potassium 3.6 Chloride 106 Carbon Dioxide 23 Anion Gap 8 BUN 15 Creatinine 0.66 Est Cr Clr Drug Dosing 149.3 Est GFR ( Amer) 148.4 Est GFR (Non-Af Amer) 128.1 BUN/Creatinine Ratio 22.7 H Glucose 94 Lactate Calcium 9.1 Total Bilirubin 0.5 AST 13 ALT 9 Alkaline Phosphatase 63 Total Protein 6.8 Albumin 3.9 Globulin 2.9 Albumin/Globulin Ratio 1.3 Lyme Disease IgG Ab Lyme Disease IgM Ab SARS-CoV-2, RNA, NAAT 07/12/21 07/12/21 07/12/21 00:30 03:21 03:41 WBC RBC Hgb Hct MCV MCH MCHC RDW Std Deviation RDW Coeff of Sol Plt Count MPV Immature Gran % (Auto) Neut % (Auto) Lymph % (Auto) [place] % (Auto) Eos % (Auto) Baso % (Auto) Neut # (Auto) Lymph # (Auto) [place] # (Auto) Eos # (Auto) Baso # (Auto) Immature Gran # (Auto) ESR Sodium Potassium Chloride Carbon Dioxide Anion Gap BUN Creatinine Est Cr Clr Drug Dosing Est GFR ( Amer) Est GFR (Non-Af Amer) BUN/Creatinine Ratio Glucose Lactate 0.8 Calcium Total Bilirubin AST ALT Alkaline Phosphatase Total Protein Albumin Globulin Albumin/Globulin Ratio Lyme Disease IgG Ab Negative Lyme Disease IgM Ab Negative SARS-CoV-2, RNA, NAAT NEGATIVE Micro Results: 07/12/21 03:40 Aerobic Blood Culture - Pending Blood Anaerobic Blood Culture - Pending 07/12/21 03:21 Aerobic Blood Culture - Pending Blood Anaerobic Blood Culture - Pending - Risk Factors for Resistance Risk Factors for Antimicrobial Resistance: * Immunocompromised (Humira) - Plan ANTIMICROBIAL THERAPY Vancomycin IV * Loading dose: 1750mg (20 mg/kg) * Maintenance dose: 1000mg IV (12 mg/kg) every 8 hours * AUC/LIZETTE is the preferred PK/PD target for vancomycin * AUC guided dosing is effective and associated with decreased risk of n ephrotoxicity compared to traditional trough targets * The above dose is predicted to achieve target AUC/LIZETTE of 400-600 mg/L.hr and may be associated with a 15% risk of nephrotoxicity Pharmacy will follow patient and adjust orders on a daily basis. Thank you for allowing us to participate in this patients care.
[2021-07-12] MEDS ORDERED: methylPREDNISolone 40 MG in SYRINGE 0 ML IV SCH (06:00)
--- NOTE | 2021-07-12 07:03 | Ultrasound Report ---
ULTRASOUND LEFT UPPER EXTREMITY VENOUS CLINICAL HISTORY: Left arm pain and swelling. COMPARISON STUDY: No priors. TECHNIQUE: Real-time, grayscale, and color Doppler sonography of the deep veins of the left upper ext remity is performed. Compression and augmentation were utilized. FINDINGS: There is no sonographic evidence of deep venous thrombosis identified in the left upper ext remity. The left internal jugular, axillary, and brachial veins are patent and normally compressible. Normal venous waveforms and augmentation are seen within the left subclavian vein. The cephalic and basilic veins are clear. The visualized radial and ulnar veins are patent. IMPRESSION: There is no sonographic evidence of deep venous thrombosis identified in the left upper e xtremity. ACT 112: Negative or not required by law. Electronically signed by: Woo Mosquera M.D. 07/12/2021 7:01 AM
--- NOTE | 2021-07-12 09:37 | Medical Student Progress Note ---
Date of Service July 12, 2021 Assessment & Plan (1) Cellulitis of forearm, left: Plan: Johanna is a 20 yo female with a history of juvenile arthritis. Currently on Humira. She noticed a small erythematous papule on left lateral forearm on 07/01 that started to worsen and get bigger, she came in to the ED on 07/04 , was given ceftriaxone IV and discharged on cephalexin and doxycycline. on 07/06 she was given cafazolin IV -cellulitis vs erysipelas. likely due to immunosuppression. no evidence of abscess no exam. Non purulent. -continue IV vancomycin (2) Erythema nodosum: Plan: Hyperpigmented plaques. Somewhat painful. Left upper extremity and left lower extremity -Methylprednisolone 40 mg IV every 8 hours (3) Juvenile rheumatoid arthritis: Plan: Chronic. Had stopped medications for a while but restarted Humira last month. every other week. Has missed dosages for the past 4 weeks due to having a cold. Follows up with a Diesel Powerplant Mechanic in [place]. (4) Immunocompromised: Plan: Immunocompromise due to use of Humira. Likely what lead to current skin infection and other recent infections. Diet: regular Code: full DVT prophylaxis Dispo: Admission and Anticipated Discharge Date Admission Date: July 12, 2021 Subjective Johanna is a 20 yo female who presents with worsening erythema on her lateral left forearm. She feels overall well this morning. Erythema on her arm feels the same. Able to eat and move around well. Denies systemic sxs like fever, chills, nausea, vomiting, headaches. Review of Systems Constitutional: no fever, no chills and no fatigue Respiratory: no cough, no chest congestion, no dyspnea and no dyspnea on exertion Cardiovascular: no chest pain, no chest pain at rest, no chest pain with activity and no dyspnea Gastrointestinal: no abdominal pain, no nausea and no vomiting Neurologic: no generalized weakness, no tingling and no numbness Physical Exam Constitutional: well developed and well nourished; no acute distress and not ill appearing Respiratory: normal respiratory effort, lungs clear to auscultation Cardiovascular: RRR, no murmur, no edema Skin: -red, erythematous plaque the left lateral forearm. warm, nonpurulent. -several hyperpigmented plaques on bilateral lower legs Results & Data ([facility]) Vital Signs (Past 12 Hours) Vital Signs Temp Pulse Pulse Resp BP BP BP 04/28/22 07:34 36.8 C 90 16 111/72 07/12/21 05:36 36.9 C 72 18 106/85 07/12/21 05:32 36.9 C 72 16 106/85 07/12/21 05:00 89 18 128/69 07/12/21 03:53 82 18 119/67 07/11/21 23:59 36.6 C 80 18 108/73 Pulse Ox 07/12/21 07:34 97 07/12/21 05:36 96 07/12/21 05:32 96 07/12/21 05:00 99 07/12/21 03:53 98 07/11/21 23:59 99 Laboratory Results Laboratory Results WBC 11.42 K/uL (4.8-10.8) H 07/12/21 00:30 RBC 3.99 M/uL (4.2-5.4) L 07/12/21 00:30 Hgb 12.4 g/dL (12.0-16.0) 07/12/21 00:30 Hct 35.7 % (37-47) L 07/12/21 00:30 MCV 89.5 fL (80-100) 07/12/21 00:30 MCH 31.1 pg (25-34) 07/12/21 00:30 MCHC 34.7 g/dL (32-36) 07/12/21 00:30 RDW Std Deviation 40.0 fL (36.4-46.3) 07/12/21 00:30 RDW Coeff of Sol 12.4 % (11.5-14.5) 07/12/21 00:30 Plt Count 286 K/uL (130-400) 07/12/21 00:30 MPV 10.6 fL (7.4-10.4) H 07/12/21 00:30 Immature Gran % (Auto) 0.2 % 07/12/21 00:30 Neut % (Auto) 72.9 % 07/12/21 00:30 Lymph % (Auto) 18.9 % 07/12/21 00:30 [place] % (Auto) 7.4 % 07/12/21 00:30 Eos % (Auto) 0.4 % 07/12/21 00:30 Baso % (Auto) 0.2 % 07/12/21 00:30 Neut # (Auto) 8.32 K/uL (1.4-6.5) H 07/12/21 00:30 Lymph # (Auto) 2.16 K/uL (1.2-3.4) 07/12/21 00:30 [place] # (Auto) 0.85 K/uL (0.11-0.59) H 07/12/21 00:30 Eos # (Auto) 0.05 K/uL (0-0.5) 07/12/21 00:30 Baso # (Auto) 0.02 K/uL (0-0.2) 07/12/21 00:30 Immature Gran # (Auto) 0.02 K/uL (0.00-0.02) 07/12/21 00:30 ESR 28 mm/hr (0-20) H 07/12/21 00:30 Sodium 137 mmol/L (136-145) 07/12/21 00:30 Potassium 3.6 mmol/L (3.5-5.1) 07/12/21 00:30 Chloride 106 mmol/L (98-107) 07/12/21 00:30 Carbon Dioxide 23 mmol/L (21-32) 07/12/21 00:30 Anion Gap 8 (3-11) 07/12/21 00:30 BUN 15 mg/dl (6-23) 07/12/21 00:30 Creatinine 0.66 mg/dl (0.6-1.2) 07/12/21 00:30 Est Cr Clr Drug Dosing 149.3 ml/min 07/12/21 00:30 Est GFR ( Amer) 148.4 ml/min 07/12/21 00:30 Est GFR (Non-Af Amer) 128.1 ml/min 07/12/21 00:30 BUN/Creatinine Ratio 22.7 (10-20) H 07/12/21 00:30 Glucose 94 mg/dl (70-99(Fasting)) 07/12/21 00:30 Lactate 0.8 mmol/L (0.4-2.0) 07/12/21 03:21 Calcium 9.1 mg/dl (8.5-10.1) 07/12/21 00:30 Total Bilirubin 0.5 mg/dl (0.2-1.0) 07/12/21 00:30 AST 13 U/L (13-39) 07/12/21 00:30 ALT 9 U/L (7-52) 07/12/21 00:30 Alkaline Phosphatase 63 U/L (34-104) 07/12/21 00:30 Total Protein 6.8 gm/dl (6.0-8.3) 07/12/21 00:30 Albumin 3.9 gm/dl (3.4-5.0) 07/12/21 00:30 Globulin 2.9 gm/dl (2.5-4.0) 07/12/21 00:30 Albumin/Globulin Ratio 1.3 (0.9-2) 07/12/21 00:30 Lyme Disease IgG Ab Negative (Negative) 07/12/21 00:30 Lyme Disease IgM Ab Negative (Negative) 07/12/21 00:30 SARS-CoV-2, RNA, NAAT NEGATIVE (NEGATIVE) 07/12/21 03:41 Impressions Extremity Venous Study 07/12/21 00:18 ULTRASOUND LEFT UPPER EXTREMITY VENOUS CLINICAL HISTORY: Left arm pain and swelling. COMPARISON STUDY: No priors. TECHNIQUE: Real-time, grayscale, and color Doppler sonography of the deep veins of the left upper extremity is performed. Compression and augmentation were utilized. FINDINGS: There is no sonographic evidence of deep venous thrombosis identified in the left upper extremity. The left internal jugular, axillary, and brachial veins are patent and normally compressible. Normal venous waveforms and augmentation are seen within the left subclavian vein. The cephalic and basilic veins are clear. The visualized radial and ulnar veins are patent. IMPRESSION: There is no sonographic evidence of deep venous thrombosis identified in the left upper extremity. ACT 112: Negative or not required by law. Electronically signed by: Woo Mosquera M.D. 07/12/2021 7:01 AM Medications Administered Current Medications Acetaminophen (Acetaminophen 325 Mg Tab) 650 mg PO Q4H PRN PRN Reason: pain/fever Stop: 08/11/21 05:31 Methylprednisolone 40 mg/ (Syringe) 0.64 mls @ 1.5 mls/min IV Q8H ETIENNE Stop: 08/11/21 05:59 Last Admin: 07/12/21 06:13 Dose: 1.5 mls/min Documented by: Vancomycin HCl 1,000 mg/ (Sodium Chloride) 270 mls @ 200 mls/hr IV Q8H ETIENNE Stop: 07/19/21 09:59 Miscellaneous (Adarsh - Order Awaiting Action) 1 ea N/A QS ETIENNE Stop: 08/11/21 07:59 Last Admin: 07/12/21 09:16 Dose: Not Given Documented by: Miscellaneous Information (Vancomycin Consult Active) 1 ea N/A UD PRN PRN Reason: Consult Stop: 08/11/21 05:31 Ondansetron HCl (Ondansetron Inj 2 Mg/Ml 2 Ml Vial) 4 mg IV Q6H PRN PRN Reason: Nausea Stop: 08/11/21 05:31
[2021-07-12] MEDS ORDERED: VANCOMYCIN HCL 1,000 MG in SODIUM CHLORIDE 0.9% 250 ML IV SCH (10:00)
[2021-07-12] MEDS ORDERED: POTASSIUM IODIDE SOLN 1 GM/ML 30 ML PO SCH (10:20)
[2021-07-12] MEDS ORDERED: IBUPROFEN 600 MG TAB PO SCH (11:15)
--- NOTE | 2021-07-12 13:25 | Med Student Discharge Summary ---
Date of Service July 12, 2021 Admission HPI Per Admitting Provider The patient is a 20-year-old female with a past medical history including juvenile rheumatoid arthritis, 1 mononucleosis, recurrent pneumonia, cavitary pneumonia, immunocompromised on Humira. She presented to the ED initially on 07/04 and then 07/06/2021, having been given a treatment of ceftriaxone IV on 07/04, and started on cephalexin and doxycycline. She returned to the emergency department on 07/06, and at that time was given Ancef IV, and continued on cephalexin and doxycycline. Due to continued worsening of her left forearm, she presents to the emergency department as noted. Patient also notes a similar a rosangela on her left anterior tibial area, which is similar to a previous area on her right pabon, that had been biopsied with no definite diagnosis in the past Admission Exam (Per Admitting) Constitutional well developed and well nourished; no acute distress and not ill appearing Respiratory normal respiratory effort, lungs clear to auscultation Cardiovascular RRR, no murmur, no edema Neurologic PERRL, EOMI, accommodation nl, no face palsy, no dysarthria Discharge Exam Constitutional well developed and well nourished; no acute distress and not ill appearing Respiratory normal respiratory effort, lungs clear to auscultation Cardiovascular RRR, no murmur, no edema Skin red erythematous plaque on the left lateral forearm. warm, tender to touch, 15x13 cm in size a few hypopigment nodular plaque on bilateral lower legs. non erythematous Neurologic PERRL, EOMI, accommodation nl, no face palsy, no dysarthria Discharge Data Consultations 07/12/21 03:34 ED Decision to Admit Stat Hospital Course (1) Erythema of forearm: Due to the suspected treatment failure of patient's outpatient antibiotic regimen (keflex and doxycycline), patient was started on vancomycin IV. On hospital day two, minimal improvement was noted in the size of patient's left forearm area of erythema and edema. On hospital day two in the morning, the area was noted to be 6cm x 10cm. Later in the day, the area was noted to have expanded to about 15cm x 13cm. Patient noted that the lesion was about that size a few days to a week prior to presenting to the hospital. Per patient's recollection, the fluctuation in size of the lesion did not correlate with when her outpatient antibiotic regimen was started or changed. Given these facts, patient's symptoms were felt unlikely to be due to cellulitis, and alternate non-infectious diagnoses were favored, in particular erythema nodosum, which patient had experienced in the past. However, given patient's immunosuppressed status (secondary to biweekly humira therapy and known juvenile rheumatoid arthritis), continuation of antibiotics was recommended, as cellulitis had not been completely ruled out. Patient was discharged on hospital day two in stable condition with a prescription for linezolid to complete a total MRSA-covering antibiotic duration of seven days. Patient strongly desired to be discharged from the hospital to attend to academic obligations, and patient was deemed stable enough for discharge. Prior to discharge, outpatient follow-up was arranged to take place the following day (07/13/2021) with Dr. Benitez at [facility]. Additionally, patient was encouraged to treat presumed erythema nodosum with NSAIDs, which patient already had at home (naproxen). Further follow-up with patient's home slime plant operator (in the [place] area) was encouraged. (2) Juvenile rheumatoid arthritis: (3) Immunocompromised: Discharge Plan Discharge Items Patient Disposition: Home - Self-Care Reason For Visit: JRA, E. NODOSUM, CELLULITIS Discharge Diagnosis: Arm pain and swelling concerning for cellulitis Activity: Resume your previous activity Non-emergency contact: Primary Care Provider Call non-emergency contact if: you have any medication questions, your symptoms worsen, your pain is not controlled and you have a fever Follow-up/Referrals: [facility] [Primary Care Provider] - Lakeshia Benitez DO [Resident] - 07/13/21 2:50 pm Diet: Regular Addtl Attending Provider Instructions: You were admitted to the hospital for arm pain and swelling, which we suspect is either due to an infection, or due to an autoimmune condition called erythema nodosum. You were treated with antibiotics and antiinflammatory medicines. We feel it is safe for you to continue your recovery from home. A discharge summary will be sent to your primary care physician to ensure continuity of care. Please bring this discharge summary with you to your next office appointment so that your provider can review it at that time. Follow-up appointments: Make a follow-up appointment with your PCP within the next week. It is very important that you follow up with them shortly after discharge from the hospital. Keep all your follow-up appointments as already scheduled. If you cannot make an appointment, notify your provider. Medications: Your medication list has been reviewed and reconciled upon discharge to ensure accuracy and continuity of care. An updated list of all your medications is included with your hospital discharge paperwork. Please review this list closely, and make note of any changes. * We sent a new medication called linezolid to your pharmacy. Take linezolid (600mg) one tablet daily for six days (your final dose will be on July 17). * For pain and swelling, you can take naproxen following the directions from your home providers who have managed erythema nodosum in the past. If you have any issues filling these prescriptions, please call [phone] and ask to leave a message for Dr. Ned Salazar. Take your medications as instructed; do not skip a dose of your medicines. Make sure all of your doctors know every medicine you are taking (including hhrb-szz-tefokhw medicines, vitamins, and supplements). Call your primary care provider before taking any new medicines (including cxlq-[id number] medicines, vitamins, and supplements), because some of these may interact with your current medications, or may make your symptoms worse. Tell your primary care provider if you cannot afford your medications. CONTACT YOUR PRIMARY CARE PROVIDER if you experience any of the following: Fever Worsening pain, redness, or swelling Difficulty following your treatment plan, or difficulty taking medications CALL 911 OR GO TO THE EMERGENCY DEPARTMENT if you experience any of the following: Sudden, severe abdominal pain or nausea/vomiting Severe chest pain, or chest pain that radiates (moves) to your jaw or arm Sudden, severe shortness of breath or difficulty breathing Thank you for allowing us to participate in your care. Pending Studies at Discharge: No Stand-Alone Forms: My [facility] Medications and DC Order Prescriptions: New linezolid 600 mg tablet 600 mg PO BID 6 Days Qty: 12 RF: 0 Continued ethynodiol diac-eth estradiol [Adarsh ()] 1-35 mg-mcg tablet 1 tab PO DAILY RF: 0 clobetasol 0.05 % ointment 1 applic TOPICAL TID PRN (Reason: Rash) RF: 0 Humira(CF) Pen 40 mg/0.4 mL pen injector kit 40 mg SUBCUT .EVERY 2 WEEKS RF: 0 Discontinued cephalexin 500 mg capsule 500 mg PO QID 9 Days Qty: 36 RF: 0 doxycycline hyclate 100 mg capsule 100 mg PO BID 9 Days Qty: 18 RF: 0 Discharge Orders: Discharge Order (Routine); Ordered 07/12/21 Ordered By: Ned Salazar Admission Data Admit Date/Time: 07/12/21 03:51 Attending Provider: Ketan Menon Admit Provider: Sundar Franz Primary Care Provider: [facility] Other Providers: Sundar Franz Other Interventions: Discharge Summary Assessment (RN) Last Done: 07/12/21 13:39 Supervising Attestation I personally examined the patient and verified all benoit points of history and exam, discussed case, and agree with decision making with Ector Graham MS4 Feels okay and up to going home. Very much wants to leave the hospital due to concern on finals. Area of left arm seems about the same as yesterday, not very tender. Later revisited by resident physician as well as medical student as the area had gotten a little bit biggerbut was generally circumferential and not tracking proximately. Vitals noted, in general she is awake and alert pleasant no distress. HEENT normocephalic atraumatic mucous membranes moist. Breathing unlabored no accessory muscle use good effort. Skin without rashes pallor or icterus, no diaphoresis. Neuro without focal deficits. Left upper extremity extensorabout three quarters the way distal between elbow and shoulder there is a fairly large area of salmon pain, redness with mild skin thickening, not bright red, not very hot, not really tender, no crepitus Left upper extremity skin rashthe main differential being cellulitis versus erythema nodosumI favor the latter, although not able to definitively rule out 1 versus the other at this point. Has already been on multiple antibiotics. For now, definitely safe/stable for homeif his erythema nodosumobviously safe/stable for her usual outpatient doctors to follow-up withand she notes she has had this before. If cellulitisshe is absolutely not septic or unstable in any wayand therefore would be very stable/safe for outpatient follow-up. Given the escalation of antibiotics combined with her allergieslinezolid makes the most sense to continue treatment for now. We will discharge her to home and have her have outpatient follow-up in the office tomorrow afternoon. Resident physician in the office tomorrow was brought up to see her today to have a baseline for comparison. Safe/stable for discharge home.
[2021-07-12] MEDS ORDERED: IBUPROFEN 800 MG TAB PO SCH (14:00)
--- NOTE | 2021-07-12 19:34 | Billing Data ---
Date of Service July 12, 2021 Coding Level of Care Code 35550 OBS Care - Discharge
== END 2021-07-12 15:04 | disposition home or self-care (01) ==
LOC: 3W 23:55 → ED 23:55 → SUATTDRO 07-12 03:51 → 3W 07-12 05:00